=== PATIENT | female | born 1970 | race Caucasian/White ===

== ENCOUNTER 2017-09-27 23:28 | Emergency (ER) | payer OTHER ==
[~2017-09-27] VITALS: Ht 177.8 cm; Wt 101.9 kg
[~2017-09-27 23:28] MED LIST: ARIP5TAB4 PO; BUPR-94 PO; IRON-6; SERT100T PO; ZOLP12.543 PO
[2017-09-27 23:42] VITALS: BP 134/85
== END 2017-09-28 02:00 | disposition home or self-care (01) ==
LOC: ER 23:28
DX: R68.84 Jaw pain (principal); G43.909 Migraine, unspecified, not intractable, without status migrainosus; G89.29 Other chronic pain; Z90.49 Acquired absence of other specified parts of digestive tract; Z98.890 Other specified postprocedural states; Z98.84 Bariatric surgery status; Z91.013 Allergy to seafood; Z88.1 Allergy status to other antibiotic agents; Z79.899 Other long term (current) drug therapy; W19.XXXA Unspecified fall, initial encounter; Y93.89 Activity, other specified; Y92.89 Other specified places as the place of occurrence of the external cause; Y99.9 Unspecified external cause status
CPT/HCPCS: 70486; 99284

== ENCOUNTER 2017-11-21 07:38 | Outpatient (CLI) | payer OTHER ==
[2017-11-21 08:10] LABS: BASOPHILS % (AUTO) 0.7 % (0-1); EOSINOPHILS # (AUTO) 0.2 X10'3 (0-0.9); EOSINOPHILS % (AUTO) 4.3 % (0-6); HEMATOCRIT 42.4 % (35.0-45.0); HEMOGLOBIN 14.6 g/dl (12.0-16.0); LYMPHOCYTES # (AUTO) 1.1 X10'3 (1.1-4.8); MEAN CORPUSCULAR HGB CONC 34.4 % (33.0-36.5); MEAN CORPUSCULAR VOLUME 92.9 FL (78-98); MEAN PLATELET VOLUME 9.3 FL (7.4-10.4); MONOCYTES # (AUTO) 0.3 X10'3 (0-0.9); MONOCYTES % (AUTO) 7.5 % (2-12); NEUTROPHILS # (AUTO) 2.6 X10'3 (1.8-7.7); NEUTROPHILS % (AUTO) 61.5 % (42-75); PLATELET COUNT 204 X10'3 (140-440); RED BLOOD COUNT 4.56 X10'6 (4.20-5.60); RED CELL DISTRIBUTION WIDTH 14.4 % (11.5-14.5); WHITE BLOOD COUNT 4.2 X10'3 (4.5-11.0)
[2017-11-21 08:21] LABS: HEMOGLOBIN A1C 5.3 % (4.5-6.2)
[2017-11-21 08:49] LABS: ALANINE AMINOTRANSFERASE 31 U/L (12-78); ALBUMIN/GLOBULIN RATIO 1.3 (1.1-1.5); ALKALINE PHOSPHATASE 55 IU/L (46-116); ANION GAP 8 (8-16); ASPARTATE AMINO TRANSFERASE 21 U/L (10-37); BILIRUBIN,TOTAL 0.4 MG/DL (0.1-1.0); BLOOD UREA NITROGEN 17 MG/DL (7-18); BUN/CREATININE RATIO 18.3 (6.6-38.0); CALCIUM 8.8 MG/DL (8.5-10.1); CHLORIDE 103 MMOL/L (99-107); CHOLESTEROL 226 MG/DL (0-200); CREATININE 0.93 MG/DL (0.40-0.90); FERRITIN 34 NG/ML (8-252); GLUCOSE 92 MG/DL (70-104); POTASSIUM 4.1 MMOL/L (3.5-5.1); SODIUM 141 MMOL/L (135-145); TOTAL CARBON DIOXIDE 29.8 MMOL/L (24-32); TOTAL PROTEIN 7.1 G/DL (6.4-8.2); eGFR 64 ML/MIN
[2017-11-21 08:50] LABS: CHOL/HDL RATIO 2.2 (0.00-4.99); HDL CHOLESTEROL 103 MG/DL (35-60); LDL CHOLESTEROL 118 MG/DL (50-100); TRIGLYCERIDES 57 MG/DL (20-135)
== END 2017-11-21 23:59 | disposition home or self-care (01) ==
LOC: LAB 07:38
PROVIDERS: ATTEND Registered Nurse General Practice
DX: E78.5 Hyperlipidemia, unspecified (principal); R73.9 Hyperglycemia, unspecified; E55.9 Vitamin D deficiency, unspecified; D64.9 Anemia, unspecified
CPT/HCPCS: 36415; 80053; 80061; 82306; 82728; 83036; 84439; 84443; 85025

== ENCOUNTER 2018-01-03 15:12 | Outpatient (CLI) | payer OTHER ==
[2018-01-03 15:58] LABS: CLARITY,URINE CLEAR (Clear); COLOR,URINE YELLOW (Yellow); GLUCOSE, URINE NEGATIVE (Neg); KETONES,URINE NEGATIVE (Neg); LEUKOCYTE ESTERASE ,URINE NEGATIVE (Neg); NITRITES, URINE NEGATIVE (Neg); OCCULT BLOOD,URINE NEGATIVE (Neg); PH,URINE 5.5 (4.8-8.0); PROTEIN,URINE NEGATIVE (Neg); UROBILINOGEN,URINE 0.2 E.U/dL (0.2-1.0)
[2018-01-03 16:02] LABS: UA COLLECTION TYPE NON-SPECIFIED
== END 2018-01-03 23:59 | disposition home or self-care (01) ==
LOC: LAB 15:12
PROVIDERS: ATTEND Internal Medicine
DX: Z00.00 Encounter for general adult medical examination without abnormal findings (principal)
CPT/HCPCS: 81003

== ENCOUNTER 2018-03-19 14:18 | Outpatient (CLI) | payer OTHER | END 2018-03-19 23:59 | disposition home or self-care (01) | LOC: RAD 14:18 | PROVIDERS: ATTEND Registered Nurse General Practice | DX: M50.323 Other cervical disc degeneration at C6-C7 level (principal); M48.02 Spinal stenosis, cervical region; M25.78 Osteophyte, vertebrae; M43.12 Spondylolisthesis, cervical region | CPT/HCPCS: 72050; 72052 ==

== ENCOUNTER 2018-05-12 09:53 | Outpatient (CLI) | payer OTHER | END 2018-05-12 23:59 | disposition home or self-care (01) | LOC: RAD 09:53 | PROVIDERS: ATTEND Family Medicine | DX: M48.02 Spinal stenosis, cervical region (principal); M54.12 Radiculopathy, cervical region; Z87.891 Personal history of nicotine dependence | CPT/HCPCS: 72141 ==

== ENCOUNTER 2018-05-13 07:30 | Outpatient (CLI) | payer OTHER ==
[2018-05-13 07:49] LABS: BASOPHILS % (AUTO) 1.1 % (0-1); EOSINOPHILS # (AUTO) 0.2 X10'3 (0-0.9); EOSINOPHILS % (AUTO) 5.2 % (0-6); HEMATOCRIT 42.7 % (35.0-45.0); HEMOGLOBIN 14.4 g/dl (12.0-16.0); LYMPHOCYTES # (AUTO) 1.6 X10'3 (1.1-4.8); LYMPHOCYTES % (AUTO) 45.4 % (21-51); MEAN CORPUSCULAR HEMOGLOBIN 31.7 PG (27.0-31.0); MEAN CORPUSCULAR HGB CONC 33.6 % (33.0-36.5); MEAN CORPUSCULAR VOLUME 94.5 FL (78-98); MEAN PLATELET VOLUME 9.7 FL (7.4-10.4); MONOCYTES # (AUTO) 0.3 X10'3 (0-0.9); NEUTROPHILS # (AUTO) 1.3 X10'3 (1.8-7.7); NEUTROPHILS % (AUTO) 38.3 % (42-75); PLATELET COUNT 248 X10'3 (140-440); RED BLOOD COUNT 4.52 X10'6 (4.20-5.60); RED CELL DISTRIBUTION WIDTH 13.6 % (11.5-14.5); WHITE BLOOD COUNT 3.5 X10'3 (4.5-11.0)
[2018-05-13 08:02] LABS: CLARITY,URINE CLEAR (Clear); COLOR,URINE STRAW (Yellow); GLUCOSE, URINE NEGATIVE (Neg); KETONES,URINE NEGATIVE (Neg); LEUKOCYTE ESTERASE ,URINE NEGATIVE (Neg); NITRITES, URINE NEGATIVE (Neg); OCCULT BLOOD,URINE NEGATIVE (Neg); PROTEIN,URINE NEGATIVE (Neg); UROBILINOGEN,URINE 0.2 E.U/dL (0.2-1.0)
[2018-05-13 08:11] LABS: UA COLLECTION TYPE CLN CATCH MIDSTREAM
[2018-05-13 08:13] LABS: ALANINE AMINOTRANSFERASE 47 U/L (12-78); ALBUMIN 4.2 G/DL (3.4-5.0); ALBUMIN/GLOBULIN RATIO 1.4 (1.1-1.5); ALKALINE PHOSPHATASE 60 IU/L (46-116); ANION GAP 3 (8-16); ASPARTATE AMINO TRANSFERASE 25 U/L (10-37); BILIRUBIN,TOTAL 0.4 MG/DL (0.1-1.0); BLOOD UREA NITROGEN 14 MG/DL (7-18); CALCIUM 8.8 MG/DL (8.5-10.1); CHLORIDE 101 MMOL/L (99-107); CHOL/HDL RATIO 2.5 (0.00-4.99); CHOLESTEROL 224 MG/DL (0-200); CREATININE 1.08 MG/DL (0.40-0.90); GLUCOSE 81 MG/DL (70-104); HDL CHOLESTEROL 91 MG/DL (35-60); LDL CHOLESTEROL 121 MG/DL (50-100); POTASSIUM 3.9 MMOL/L (3.5-5.1); SODIUM 133 MMOL/L (135-145); TOTAL CARBON DIOXIDE 28.7 MMOL/L (24-32); TOTAL PROTEIN 7.2 G/DL (6.4-8.2); TRIGLYCERIDES 58 MG/DL (20-135); eGFR 54 ML/MIN
== END 2018-05-13 23:59 | disposition home or self-care (01) ==
LOC: LAB 07:30
PROVIDERS: ATTEND Family Medicine
DX: M54.2 Cervicalgia (principal); R53.83 Other fatigue; Z76.89 Persons encountering health services in other specified circumstances; Z87.891 Personal history of nicotine dependence; Z98.51 Tubal ligation status; Z98.84 Bariatric surgery status
CPT/HCPCS: 36415; 80053; 80061; 81003; 84439; 84443; 85025

== ENCOUNTER 2018-08-13 11:59 | Outpatient (CLI) | payer OTHER ==
[2018-08-13 13:15] LABS: ALANINE AMINOTRANSFERASE 43 U/L (12-78); ALBUMIN 3.9 G/DL (3.4-5.0); ALBUMIN/GLOBULIN RATIO 1.2 (1.1-1.5); ALKALINE PHOSPHATASE 49 IU/L (46-116); ANION GAP 9 (8-16); ASPARTATE AMINO TRANSFERASE 28 U/L (10-37); BILIRUBIN,TOTAL 0.5 MG/DL (0.1-1.0); BLOOD UREA NITROGEN 12 MG/DL (7-18); BUN/CREATININE RATIO 14.1 (6.6-38.0); CALCIUM 9.1 MG/DL (8.5-10.1); CHLORIDE 104 MMOL/L (99-107); CREATININE 0.85 MG/DL (0.40-0.90); GLUCOSE 98 MG/DL (70-104); POTASSIUM 4.1 MMOL/L (3.5-5.1); SODIUM 138 MMOL/L (135-145); TOTAL CARBON DIOXIDE 25.1 MMOL/L (24-32); TOTAL PROTEIN 7.1 G/DL (6.4-8.2); eGFR 71 ML/MIN
[2018-08-14 11:16] LABS: MICROALB/CRT, RATIO <24.6 mg/g creat (0.0-30.0)
== END 2018-08-13 23:59 | disposition home or self-care (01) ==
LOC: LAB 11:59
PROVIDERS: ATTEND Family Medicine
DX: N18.3 Chronic kidney disease, stage 3 (moderate) (principal); Z87.891 Personal history of nicotine dependence
CPT/HCPCS: 36415; 80053; 82043; 82570

== ENCOUNTER 2018-10-06 08:24 | Day surgery (SDC) | payer OTHER ==
[~2018-10-06] VITALS: Ht 177.8 cm; Wt 90.0 kg
[2018-10-06] MEDS ORDERED: MIDAZolam 5mg/5ml vial ONE ×2 (08:31→08:40)
[2018-10-06] MEDS ORDERED: fentaNYL/PF 50MCG/1 ML 2ML syringe ONE (08:31)
[2018-10-06] MEDS ORDERED: LIDOcaine Viscous 15ml cup ONE (08:31)
[2018-10-06 08:40] VITALS: BP 127/77
[2018-10-06] MEDS ORDERED: iron PO (08:46)
[2018-10-06] MEDS ORDERED: cymbalta PO (08:47)
[2018-10-06] MEDS ORDERED: NAPR220T67 PO (08:48)
[2018-10-06] MEDS ORDERED: GABA300C PO (08:48)
[2018-10-06] MEDS ORDERED: MELA3TAB PO (08:49)
[2018-10-06] MEDS ORDERED: CALC-1051 PO (08:49)
[2018-10-06] MEDS ORDERED: MAGN400C PO (08:50)
[2018-10-06] MEDS ORDERED: fish oil PO (08:51)
[2018-10-06] MEDS ORDERED: NIA500ERT PO (08:51)
[2018-10-06 10:15] VITALS: BP 110/73
[2018-10-06 10:25] VITALS: BP 111/72
[2018-10-06 10:35] VITALS: BP 103/66
[2018-10-06 10:45] VITALS: BP 114/67
== END 2018-10-06 10:55 | disposition home or self-care (01) ==
LOC: GI LAB 08:24
PROVIDERS: ATTEND Internal Medicine Gastroenterology
DX: K64.8 Other hemorrhoids (principal); Q43.8 Other specified congenital malformations of intestine; R19.4 Change in bowel habit; K21.9 Gastro-esophageal reflux disease without esophagitis; G89.29 Other chronic pain; F32.9 Major depressive disorder, single episode, unspecified; F41.8 Other specified anxiety disorders; Z98.84 Bariatric surgery status; Z72.89 Other problems related to lifestyle; Z98.51 Tubal ligation status; Z88.1 Allergy status to other antibiotic agents; Z88.3 Allergy status to other anti-infective agents; Z91.013 Allergy to seafood; Z87.891 Personal history of nicotine dependence; Z87.11 Personal history of peptic ulcer disease; Z90.49 Acquired absence of other specified parts of digestive tract; Z79.891 Long term (current) use of opiate analgesic; Z79.899 Other long term (current) drug therapy; Z98.890 Other specified postprocedural states; Z83.42 Family history of familial hypercholesterolemia; Z82.49 Family history of ischemic heart disease and other diseases of the circulatory system
CPT/HCPCS: 45378; 99152; 99153; J2250; J3010; J7030; A4620

== ENCOUNTER 2019-09-07 15:00 | Outpatient (CLI) | payer OTHER ==
[~2019-09-07 15:00] MED LIST changes: +ARIP5TAB14 PO; -ARIP5TAB4 PO; -BUPR-94 PO; +CALC-1051 PO; +GABA300C PO; -IRON-6; +MAGN400C PO; +MELA3TAB64 PO; +NAPR220T67 PO; +NIA500ERT PO; -SERT100T PO; +cymbalta PO; +fish oil PO; +iron PO
[2019-09-07 17:52] LABS: HIV ANTIBODY 1&2 RAPID NON-REACTIVE (Neg)
[2019-09-09 08:10] LABS: RPR Non Reactive (Non Reactive)
[2019-09-09 11:16] LABS: HEPATITIS C ANTIBODY <0.1 s/co ratio (0.0-0.9)
== END 2019-09-07 23:59 | disposition home or self-care (01) ==
LOC: LAB 15:00
PROVIDERS: ATTEND Specialist
DX: Z11.59 Encounter for screening for other viral diseases (principal)
CPT/HCPCS: 36415; 86592; 86703; 86803

== ENCOUNTER 2019-09-07 15:02 | Outpatient (CLI) | payer OTHER | END 2019-09-07 23:59 | disposition home or self-care (01) | LOC: LAB 15:02 | PROVIDERS: ATTEND Family Medicine | DX: K59.00 Constipation, unspecified (principal) | CPT/HCPCS: 74018 ==

== ENCOUNTER 2019-09-07 15:03 | Outpatient (CLI) | payer OTHER ==
[2019-09-07 16:03] LABS: BASOPHILS # (AUTO) 0.1 X10'3 (0-0.2); BASOPHILS % (AUTO) 1.2 % (0-1); EOSINOPHILS # (AUTO) 0.1 X10'3 (0-0.9); HEMATOCRIT 39.6 % (35.0-45.0); HEMOGLOBIN 13.3 g/dl (12.0-16.0); LYMPHOCYTES # (AUTO) 1.7 X10'3 (1.1-4.8); LYMPHOCYTES % (AUTO) 32.2 % (21-51); MEAN CORPUSCULAR HEMOGLOBIN 31.6 PG (27.0-31.0); MEAN CORPUSCULAR HGB CONC 33.7 g/dL (33.0-36.5); MEAN CORPUSCULAR VOLUME 93.9 FL (78-98); MEAN PLATELET VOLUME 9.6 FL (7.4-10.4); MONOCYTES # (AUTO) 0.4 X10'3 (0-0.9); MONOCYTES % (AUTO) 6.6 % (2-12); NEUTROPHILS # (AUTO) 3.1 X10'3 (1.8-7.7); PLATELET COUNT 254 X10'3 (140-440); RED BLOOD COUNT 4.21 X10'6 (4.20-5.60); RED CELL DISTRIBUTION WIDTH 14.3 % (11.5-14.5); WHITE BLOOD COUNT 5.4 X10'3 (4.5-11.0)
[2019-09-07 16:12] LABS: HEMOGLOBIN A1C 5.6 % (4.5-6.2)
[2019-09-07 16:27] LABS: ALANINE AMINOTRANSFERASE 37 U/L (12-78); ALBUMIN 3.8 G/DL (3.4-5.0); ALBUMIN/GLOBULIN RATIO 1.2 (1.1-1.5); ALKALINE PHOSPHATASE 58 IU/L (46-116); ANION GAP 9 (8-16); ASPARTATE AMINO TRANSFERASE 23 U/L (10-37); BILIRUBIN,TOTAL 0.2 MG/DL (0.1-1.0); BLOOD UREA NITROGEN 17 MG/DL (7-18); BUN/CREATININE RATIO 23.3 (6.6-38.0); CALCIUM 8.6 MG/DL (8.5-10.1); CHLORIDE 108 MMOL/L (99-107); CREATININE 0.73 MG/DL (0.40-0.90); GLUCOSE 92 MG/DL (70-104); LIPASE 140 U/L (73-393); POTASSIUM 4.3 MMOL/L (3.5-5.1); SODIUM 140 MMOL/L (135-145); TOTAL CARBON DIOXIDE 23.3 MMOL/L (24-32); TOTAL PROTEIN 7.1 G/DL (6.4-8.2); eGFR 84 ML/MIN
== END 2019-09-07 23:59 | disposition home or self-care (01) ==
LOC: LAB 15:03
PROVIDERS: ATTEND Family Medicine
DX: M54.2 Cervicalgia (principal); R53.83 Other fatigue
CPT/HCPCS: 36415; 80053; 83036; 83690; 84439; 84443; 85025

== ENCOUNTER 2019-11-01 08:21 | Emergency (ER) | payer OTHER ==
[~2019-11-01] VITALS: Ht 177.8 cm; Wt 90.3 kg
[2019-11-01 10:23] VITALS: BP 130/88
[2019-11-01] MEDS ORDERED: dexamethasone sod phosphate 10mg/ml inj PO STA (10:44)
== END 2019-11-01 11:01 | disposition home or self-care (01) ==
LOC: EEVIPCON 08:22 → ER 08:22
DX: B34.9 Viral infection, unspecified (principal); G43.909 Migraine, unspecified, not intractable, without status migrainosus; G89.29 Other chronic pain; Z98.890 Other specified postprocedural states; Z90.49 Acquired absence of other specified parts of digestive tract; Z98.84 Bariatric surgery status; Z91.013 Allergy to seafood; Z88.1 Allergy status to other antibiotic agents; Z79.899 Other long term (current) drug therapy
CPT/HCPCS: 87081; 87502; 87503; 87880; 99283; J1100

== ENCOUNTER 2019-11-10 14:56 | Outpatient (CLI) | payer OTHER ==
[2019-11-10 15:47] LABS: BASOPHILS # (AUTO) 0.1 X10'3 (0-0.2); BASOPHILS % (AUTO) 1.3 % (0-1); EOSINOPHILS % (AUTO) 0.3 % (0-6); HEMOGLOBIN 14.3 g/dl (12.0-16.0); LYMPHOCYTES # (AUTO) 1.6 X10'3 (1.1-4.8); LYMPHOCYTES % (AUTO) 34.9 % (21-51); MEAN CORPUSCULAR HEMOGLOBIN 31.2 PG (27.0-31.0); MEAN CORPUSCULAR VOLUME 91.6 FL (78-98); MEAN PLATELET VOLUME 8.6 FL (7.4-10.4); MONOCYTES # (AUTO) 0.4 X10'3 (0-0.9); MONOCYTES % (AUTO) 9.7 % (2-12); NEUTROPHILS # (AUTO) 2.4 X10'3 (1.8-7.7); NEUTROPHILS % (AUTO) 53.8 % (42-75); PLATELET COUNT 274 X10'3 (140-440); RED BLOOD COUNT 4.58 X10'6 (4.20-5.60); RED CELL DISTRIBUTION WIDTH 14.1 % (11.5-14.5); WHITE BLOOD COUNT 4.4 X10'3 (4.5-11.0)
[2019-11-10 16:06] LABS: ALANINE AMINOTRANSFERASE 37 U/L (12-78); ALBUMIN 3.6 G/DL (3.4-5.0); ALBUMIN/GLOBULIN RATIO 0.9 (1.1-1.5); ALKALINE PHOSPHATASE 93 IU/L (46-116); ANION GAP 6 (8-16); ASPARTATE AMINO TRANSFERASE 51 U/L (10-37); BILIRUBIN,TOTAL 0.3 MG/DL (0.1-1.0); BLOOD UREA NITROGEN 17 MG/DL (7-18); CALCIUM 9.2 MG/DL (8.5-10.1); CHLORIDE 105 MMOL/L (99-107); CREATININE 0.81 MG/DL (0.40-0.90); GLUCOSE 98 MG/DL (70-104); POTASSIUM 4.4 MMOL/L (3.5-5.1); SODIUM 138 MMOL/L (135-145); TOTAL CARBON DIOXIDE 26.8 MMOL/L (24-32); TOTAL PROTEIN 7.5 G/DL (6.4-8.2); eGFR 75 ML/MIN
== END 2019-11-10 23:59 | disposition home or self-care (01) ==
LOC: LAB 14:56
PROVIDERS: ATTEND Internal Medicine
DX: R50.9 Fever, unspecified (principal)
CPT/HCPCS: 36415; 80053; 85025

== ENCOUNTER 2019-11-13 09:01 | Emergency (ER) | payer OTHER ==
[~2019-11-13] VITALS: Ht 177.8 cm; Wt 95.5 kg
[2019-11-13 09:27] VITALS: BP 123/71
[2019-11-13 10:07] LABS: BASOPHILS % (AUTO) 0.9 % (0-1); EOSINOPHILS % (AUTO) 0.2 % (0-6); HEMATOCRIT 41.6 % (35.0-45.0); HEMOGLOBIN 14.1 g/dl (12.0-16.0); LYMPHOCYTES # (AUTO) 1.7 X10'3 (1.1-4.8); LYMPHOCYTES % (AUTO) 32.5 % (21-51); MEAN CORPUSCULAR HGB CONC 33.9 g/dL (33.0-36.5); MEAN CORPUSCULAR VOLUME 91.5 FL (78-98); MEAN PLATELET VOLUME 8.5 FL (7.4-10.4); MONOCYTES # (AUTO) 0.6 X10'3 (0-0.9); MONOCYTES % (AUTO) 10.7 % (2-12); NEUTROPHILS # (AUTO) 2.9 X10'3 (1.8-7.7); NEUTROPHILS % (AUTO) 55.7 % (42-75); PLATELET COUNT 258 X10'3 (140-440); RED BLOOD COUNT 4.55 X10'6 (4.20-5.60); RED CELL DISTRIBUTION WIDTH 14.3 % (11.5-14.5); WHITE BLOOD COUNT 5.2 X10'3 (4.5-11.0)
--- NOTE | 2019-11-13 10:15 | NUR ---
Received VO for 1 L NS IV bolus x 1
[2019-11-13 10:17] LABS: PARTIAL THROMBOPLASTIN TIME 25 SECONDS (22-32)
[2019-11-13 10:22] LABS: ALANINE AMINOTRANSFERASE 34 U/L (12-78); ALBUMIN 3.3 G/DL (3.4-5.0); ALBUMIN/GLOBULIN RATIO 0.8 (1.1-1.5); ALKALINE PHOSPHATASE 79 IU/L (46-116); ANION GAP 6 (8-16); ASPARTATE AMINO TRANSFERASE 51 U/L (10-37); BILIRUBIN,TOTAL 0.3 MG/DL (0.1-1.0); BLOOD UREA NITROGEN 14 MG/DL (7-18); BUN/CREATININE RATIO 19.7 (6.6-38.0); CALCIUM 8.6 MG/DL (8.5-10.1); CHLORIDE 106 MMOL/L (99-107); CREATININE 0.71 MG/DL (0.40-0.90); ETHANOL < 0.010 GM/DL (0.0-0.010); GLUCOSE 106 MG/DL (70-104); POTASSIUM 4.1 MMOL/L (3.5-5.1); SODIUM 137 MMOL/L (135-145); TOTAL CARBON DIOXIDE 24.7 MMOL/L (24-32); TOTAL PROTEIN 7.3 G/DL (6.4-8.2); eGFR 87 ML/MIN
[2019-11-13 10:23] LABS: MONOTEST NEGATIVE (Neg)
--- NOTE | 2019-11-13 10:32 | NUR ---
New IV initiated and fluid bolus running.
[2019-11-13] MEDS ORDERED: ketorolac trometh. 30mg/ml inj. IV ONE (10:45)
[2019-11-13 10:54] LABS: PLATELET ESTIMATE NORMAL; TOTAL CELLS COUNTED 100
== END 2019-11-13 11:50 | disposition home or self-care (01) ==
LOC: ER 09:01
DX: R53.1 Weakness (principal); R50.9 Fever, unspecified; J02.9 Acute pharyngitis, unspecified; R05 Cough; G43.909 Migraine, unspecified, not intractable, without status migrainosus; G89.29 Other chronic pain; F32.9 Major depressive disorder, single episode, unspecified; Z86.2 Personal history of diseases of the blood and blood-forming organs and certain disorders involving the immune mechanism; Z90.49 Acquired absence of other specified parts of digestive tract; Z98.0 Intestinal bypass and anastomosis status; Z72.89 Other problems related to lifestyle; Z91.013 Allergy to seafood; Z88.1 Allergy status to other antibiotic agents; Z88.6 Allergy status to analgesic agent; Z79.899 Other long term (current) drug therapy
CPT/HCPCS: 36415; 70450; 71045; 80053; 80320; 85025; 85610; 85730; 86308; 93005; 96374; 99285; J1885

== ENCOUNTER 2019-12-07 12:56 | Emergency (ER) | payer OTHER ==
[~2019-12-07] VITALS: Ht 177.8 cm; Wt 100.0 kg
[~2019-12-07 12:56] MED LIST changes: +MELA3TAB39 PO; -MELA3TAB64 PO
[2019-12-07] MEDS ORDERED: BUPIVAcaine/PF 2.5 mg/ml (0.25%) 30ml vial IJ ONE (13:35)
[2019-12-07] MEDS ORDERED: triamcinolone acetonide 40mg/ml inj IM ONE (13:35)
[2019-12-07] MEDS ORDERED: ketorolac trometh. 30mg/ml inj. IM ONE (13:35)
[2019-12-07] MEDS ORDERED: BUPIVAcaine/PF 2.5mg/ml (0.25%) 10ml vial IJ ONE (13:40)
[2019-12-07] MEDS ORDERED: CYCL-1 PO (14:12)
[2019-12-07 14:26] VITALS: BP 127/69
== END 2019-12-07 14:27 | disposition home or self-care (01) ==
LOC: ER 12:56
DX: M54.31 Sciatica, right side (principal); G43.909 Migraine, unspecified, not intractable, without status migrainosus; G89.29 Other chronic pain; F32.9 Major depressive disorder, single episode, unspecified; Z90.49 Acquired absence of other specified parts of digestive tract; Z98.0 Intestinal bypass and anastomosis status; Z72.89 Other problems related to lifestyle; Z86.2 Personal history of diseases of the blood and blood-forming organs and certain disorders involving the immune mechanism; Z91.013 Allergy to seafood; Z88.1 Allergy status to other antibiotic agents; Z88.8 Allergy status to other drugs, medicaments and biological substances; Z79.899 Other long term (current) drug therapy
CPT/HCPCS: 20552; 96372; 99284; J1885

== ENCOUNTER 2019-12-28 10:36 | Outpatient (CLI) | payer OTHER ==
[~2019-12-28 10:36] MED LIST changes: +CYCL-1 PO
== END 2019-12-28 23:59 | disposition home or self-care (01) ==
LOC: RAD 10:36
PROVIDERS: ATTEND Family Medicine
DX: M51.16 Intervertebral disc disorders with radiculopathy, lumbar region (principal); M47.816 Spondylosis without myelopathy or radiculopathy, lumbar region
CPT/HCPCS: 72148

== ENCOUNTER 2020-05-09 10:48 | Outpatient (CLI) | payer OTHER ==
[2020-05-09 12:23] LABS: BASOPHILS % (AUTO) 0.6 % (0-1); EOSINOPHILS # (AUTO) 0.1 X10'3 (0-0.9); EOSINOPHILS % (AUTO) 1.4 % (0-6); HEMATOCRIT 42.9 % (35.0-45.0); HEMOGLOBIN 14.7 g/dl (12.0-16.0); LYMPHOCYTES # (AUTO) 1.2 X10'3 (1.1-4.8); LYMPHOCYTES % (AUTO) 24.4 % (21-51); MEAN CORPUSCULAR HEMOGLOBIN 32.1 PG (27.0-31.0); MEAN CORPUSCULAR HGB CONC 34.3 g/dL (33.0-36.5); MEAN CORPUSCULAR VOLUME 93.6 FL (78-98); MEAN PLATELET VOLUME 9.3 FL (7.4-10.4); MONOCYTES # (AUTO) 0.4 X10'3 (0-0.9); MONOCYTES % (AUTO) 7.5 % (2-12); NEUTROPHILS # (AUTO) 3.2 X10'3 (1.8-7.7); NEUTROPHILS % (AUTO) 66.1 % (42-75); PLATELET COUNT 270 X10'3 (140-440); RED BLOOD COUNT 4.58 X10'6 (4.20-5.60); RED CELL DISTRIBUTION WIDTH 14.4 % (11.5-14.5); WHITE BLOOD COUNT 4.8 X10'3 (4.5-11.0)
[2020-05-09 12:36] LABS: CLARITY,URINE SLIGHTLY CLOUDY (Clear); GLUCOSE, URINE NEGATIVE (Neg); KETONES,URINE NEGATIVE (Neg); LEUKOCYTE ESTERASE ,URINE NEGATIVE (Neg); NITRITES, URINE NEGATIVE (Neg); OCCULT BLOOD,URINE NEGATIVE (Neg); PH,URINE 5.5 (4.8-8.0); PROTEIN,URINE NEGATIVE (Neg); UROBILINOGEN,URINE 0.2 E.U/dL (0.2-1.0)
[2020-05-09 12:44] LABS: UA COLLECTION TYPE CLN CATCH MIDSTREAM
[2020-05-09 12:45] LABS: COLOR,URINE YELLOW (Yellow)
[2020-05-09 12:53] LABS: MUCUS STRANDS MANY /LPF (Neg); SQUAMOUS EPITHELIAL CELL,UR MANY /LPF (FEW)
[2020-05-09 12:54] LABS: RBC,URINE 0-2 /HPF (0-2); WBC,URINE 0-4 /HPF (0-4)
[2020-05-09 12:55] LABS: BACTERIA,URINE FEW /HPF (Neg)
[2020-05-09 13:13] LABS: ALANINE AMINOTRANSFERASE 36 U/L (12-78); ALKALINE PHOSPHATASE 71 IU/L (46-116); ANION GAP 6 (8-16); ASPARTATE AMINO TRANSFERASE 27 U/L (10-37); BILIRUBIN,TOTAL 0.4 MG/DL (0.1-1.0); BLOOD UREA NITROGEN 20 MG/DL (7-18); BUN/CREATININE RATIO 22.7 (6.6-38.0); CHLORIDE 103 MMOL/L (99-107); CHOL/HDL RATIO 2.4 (0.00-4.99); CHOLESTEROL 232 MG/DL (0-200); CREATININE 0.88 MG/DL (0.40-0.90); GLUCOSE 87 MG/DL (70-104); HDL CHOLESTEROL 97 MG/DL (35-60); LDL CHOLESTEROL 119 MG/DL (50-100); POTASSIUM 3.7 MMOL/L (3.5-5.1); SODIUM 138 MMOL/L (135-145); TOTAL CARBON DIOXIDE 28.8 MMOL/L (24-32); TRIGLYCERIDES 51 MG/DL (20-135); eGFR 68 ML/MIN
[2020-05-10 12:22] LABS: ESTRADIOL 17.7 pg/mL (.); FSH, SERUM 44.9 mIU/mL (.); PROGESTERONE 0.1 ng/mL (.); THYROXINE (T4) 5.6 ug/dL (4.5-12.0)
== END 2020-05-09 23:59 | disposition home or self-care (01) ==
LOC: LAB 10:48
PROVIDERS: ATTEND Family Medicine
DX: Z00.00 Encounter for general adult medical examination without abnormal findings (principal); F43.9 Reaction to severe stress, unspecified; L65.9 Nonscarring hair loss, unspecified
CPT/HCPCS: 36415; 80053; 80061; 81001; 82670; 82679; 83001; 84144; 84402; 84403; 84436; 84443; 85025

== ENCOUNTER 2020-05-23 10:53 | Emergency (ER) | payer BC ==
[~2020-05-23] VITALS: Ht 177.8 cm; Wt 90.9 kg
[2020-05-23 11:03] VITALS: BP 122/88
== END 2020-05-23 12:19 | disposition home or self-care (01) ==
LOC: ER 10:53 → EEVIPCON 10:53 → ER 12:19
DX: B34.9 Viral infection, unspecified (principal); J02.9 Acute pharyngitis, unspecified; Z20.828 Contact with and (suspected) exposure to other viral communicable diseases; G43.909 Migraine, unspecified, not intractable, without status migrainosus; G89.29 Other chronic pain; F32.9 Major depressive disorder, single episode, unspecified; Z90.49 Acquired absence of other specified parts of digestive tract; Z72.89 Other problems related to lifestyle; Z88.1 Allergy status to other antibiotic agents; Z91.013 Allergy to seafood; Z88.6 Allergy status to analgesic agent; Z79.899 Other long term (current) drug therapy
CPT/HCPCS: 36415; 87081; 87880; 99283

== ENCOUNTER 2020-06-07 09:53 | Outpatient (CLI) | payer BC | END 2020-06-07 23:59 | disposition home or self-care (01) | LOC: RAD 09:53 | PROVIDERS: ATTEND Family Medicine | DX: N92.1 Excessive and frequent menstruation with irregular cycle (principal) | CPT/HCPCS: 76830; 76856 ==

== ENCOUNTER 2020-06-29 08:48 | Inpatient (IN) | payer BC ==
[~2020-06-29] VITALS: Ht 177.8 cm; Wt 99.1 kg
[2020-06-29] MEDS ORDERED: pantoprazole IV 80 MG in normal saline 100ml IV soln 100 ML IV ONE (09:25)
[2020-06-29] MEDS ORDERED: sodium ferric gluc complex inj 125 MG in normal saline 100ml IV soln 90 ML IV STA (09:28)
[2020-06-29] MEDS ORDERED: pantoprazole 40MG/NS 100ML BAG 100 ML IV ONE (09:30)
[2020-06-29 09:53] LABS: BASOPHILS % (AUTO) 1.1 % (0-1); EOSINOPHILS # (AUTO) 0.1 X10'3 (0-0.9); EOSINOPHILS % (AUTO) 1.9 % (0-6); LYMPHOCYTES # (AUTO) 0.9 X10'3 (1.1-4.8); LYMPHOCYTES % (AUTO) 20.9 % (21-51); MEAN CORPUSCULAR HEMOGLOBIN 32.5 PG (27.0-31.0); MEAN CORPUSCULAR HGB CONC 33.2 g/dL (33.0-36.5); MEAN PLATELET VOLUME 8.5 FL (7.4-10.4); MONOCYTES # (AUTO) 0.4 X10'3 (0-0.9); MONOCYTES % (AUTO) 8.4 % (2-12); NEUTROPHILS # (AUTO) 2.9 X10'3 (1.8-7.7); NEUTROPHILS % (AUTO) 67.7 % (42-75); PLATELET COUNT 274 X10'3 (140-440); RED BLOOD COUNT 2.06 X10'6 (4.20-5.60); RED CELL DISTRIBUTION WIDTH 14.6 % (11.5-14.5); WHITE BLOOD COUNT 4.2 X10'3 (4.5-11.0)
[2020-06-29 10:05] LABS: HEMATOCRIT 20.2 % (35.0-45.0); HEMOGLOBIN 6.7 g/dl (12.0-16.0)
[2020-06-29 10:11] LABS: ALANINE AMINOTRANSFERASE 35 U/L (12-78); ALBUMIN/GLOBULIN RATIO 0.9 (1.1-1.5); ALKALINE PHOSPHATASE 57 IU/L (46-116); ANION GAP 6 (8-16); ASPARTATE AMINO TRANSFERASE 30 U/L (10-37); BILIRUBIN,TOTAL 0.2 MG/DL (0.1-1.0); BLOOD UREA NITROGEN 20 MG/DL (7-18); BUN/CREATININE RATIO 28.2 (6.6-38.0); CALCIUM 8.1 MG/DL (8.5-10.1); CHLORIDE 106 MMOL/L (99-107); CREATININE 0.71 MG/DL (0.40-0.90); GLUCOSE 101 MG/DL (70-104); POTASSIUM 3.7 MMOL/L (3.5-5.1); SODIUM 138 MMOL/L (135-145); TOTAL CARBON DIOXIDE 25.7 MMOL/L (24-32); TOTAL PROTEIN 6.2 G/DL (6.4-8.2); eGFR 87 ML/MIN
[2020-06-29] MEDS ORDERED: VITC500T PO (10:34)
[2020-06-29] MEDS ORDERED: BIOT10TA4 PO (10:34)
[2020-06-29] MEDS ORDERED: DULO-31 PO (10:34)
--- NOTE | 2020-06-29 11:41 | NUR ---
Dr. Cruz at bedside.
[2020-06-29] MEDS ORDERED: potassium Cl 20 mEq SR tablet PO PRN ×2 (12:05)
[2020-06-29] MEDS ORDERED: bisacodyl 10mg suppository rectal RC PRN (12:05)
[2020-06-29] MEDS ORDERED: magnesium Cl slow-release 64mg tablet PO PRN (12:05)
[2020-06-29] MEDS ORDERED: mag hydrox/Alum hydrox/simeth 30ml oral suspension PO PRN (12:05)
[2020-06-29] MEDS ORDERED: acetaminophen 325mg tablet PO PRN ×2 (12:05)
[2020-06-29] MEDS ORDERED: potassium CL 10mEq/100ml bag 100 ML IV PRN ×2 (12:05)
[2020-06-29] MEDS ORDERED: magnesium hydroxide 30ml (MOM) UD suspension PO PRN (12:05)
[2020-06-29] MEDS ORDERED: magnesium 2GM in 50ml NS 50 ML IV PRN (12:05)
[2020-06-29] MEDS ORDERED: magnesium 4gm in 100ml NS 100 ML IV PRN (12:05)
[2020-06-29] MEDS ORDERED: metoclopramide 5 mg/ml inj IV PRN (12:05)
[2020-06-29] MEDS ORDERED: ondansetron/PF 4mg/2ml inj IV PRN (12:05)
[2020-06-29 12:59] LABS: OCCULT BLOOD STOOL POSITIVE (Neg)
[2020-06-29 14:15] VITALS: BP 113/74
[2020-06-29] MEDS: normal saline 1000ml 1,000 ML IV SCH ×3 (14:20→23:55)
[2020-06-29] MEDS ORDERED: aripiprazole 5mg tablet PO SCH (14:41)
[2020-06-29] MEDS: pantoprazole 40MG/NS 100ML BAG 100 ML IV SCH ×2 (16:14→21:11)
--- NOTE | 2020-06-29 18:23 | NUR ---
Problems reprioritized. Patient report given, questions answered & plan of care reviewed with OWEN OLMOS.
--- NOTE | 2020-06-29 18:32 | NUR ---
I have received report from Dayanna WEAVER and had the opportunity to ask questions and assume patient care.
[2020-06-29 20:00] VITALS: BP 103/46
[2020-06-29] MEDS: K and/or MAG REPLACEMENT MC SCH (20:00)
[2020-06-29] MEDS ORDERED: temazepam 15mg capsule PO PRN (21:00)
[2020-06-29] MEDS: aripiprazole 5mg tablet PO SCH (21:11)
[2020-06-29] MEDS: duloxetine 30mg CAPSULE.DR PO SCH (21:11)
[2020-06-29] MEDS: zolpidem 5mg tablet PO PRN (21:13)
[2020-06-29] MEDS: HYDROcodone/acetaminophen 5mg/325mg tablet PO PRN (22:50)
[2020-06-30] VITALS (12 sets, daily range): BP systolic 96–121; BP diastolic 50–73
[2020-06-30] MEDS: pantoprazole 40MG/NS 100ML BAG 100 ML IV SCH ×4 (01:00→16:02)
[2020-06-30] MEDS: HYDROcodone/acetaminophen 5mg/325mg tablet PO PRN (02:53)
[2020-06-30 05:44] LABS: MEAN CORPUSCULAR HGB CONC 33.9 g/dL (33.0-36.5); MEAN CORPUSCULAR VOLUME 100.3 FL (78-98); MEAN PLATELET VOLUME 8.7 FL (7.4-10.4); PLATELET COUNT 223 X10'3 (140-440); RED BLOOD COUNT 1.75 X10'6 (4.20-5.60); WHITE BLOOD COUNT 2.4 X10'3 (4.5-11.0)
[2020-06-30 05:53] LABS: ALBUMIN 2.4 G/DL (3.4-5.0); ANION GAP 5 (8-16); BLOOD UREA NITROGEN 10 MG/DL (7-18); BUN/CREATININE RATIO 14.7 (6.6-38.0); CALCIUM 7.7 MG/DL (8.5-10.1); CHLORIDE 110 MMOL/L (99-107); CREATININE 0.68 MG/DL (0.40-0.90); GLUCOSE 88 MG/DL (70-104); MAGNESIUM 2.2 MG/DL (1.5-2.4); POTASSIUM 3.8 MMOL/L (3.5-5.1); SODIUM 140 MMOL/L (135-145); TOTAL CARBON DIOXIDE 25.2 MMOL/L (24-32); eGFR > 90 ML/MIN
[2020-06-30 06:26] LABS: HEMOGLOBIN 5.9 g/dl (12.0-16.0)
[2020-06-30 06:27] LABS: HEMATOCRIT 17.5 % (35.0-45.0)
--- NOTE | 2020-06-30 06:35 | NUR ---
PAGER ID: [phone] MESSAGE: [phone] Michelle Rodríguez: critical H&H 5.9.5 -esther [phone]
--- NOTE | 2020-06-30 06:39 | NUR ---
Problems reprioritized. Patient report given, questions answered & plan of care reviewed with Sally WEAVER.
--- NOTE | 2020-06-30 06:40 | NUR ---
austyn de la cruz hospitalist regarding critical H&H 5.06/16.. he ordered 2 units of blood to transfuse if she will accept. spoke with patient regarding her labs and the new orders and she declined any blood product. called GI lab to see when upper endoscopy will be performed today, they said "early afternoon".
[2020-06-30] MEDS: K and/or MAG REPLACEMENT MC SCH ×2 (07:48→19:13)
[2020-06-30] MEDS ORDERED: duloxetine 30mg CAPSULE.DR PO SCH (08:00)
[2020-06-30] MEDS: normal saline 1000ml 1,000 ML IV SCH ×2 (09:16→20:27)
[2020-06-30] MEDS: HYDROcodone/acetaminophen 10/325mg tab PO PRN ×2 (11:05→16:02)
[2020-06-30] MEDS ORDERED: MIDAZolam 5mg/5ml vial ONE ×2 (12:25)
[2020-06-30] MEDS ORDERED: LIDOcaine Viscous 15ml cup ONE (12:25)
[2020-06-30] MEDS ORDERED: fentaNYL/PF 50MCG/1 ML 2ML syringe ONE (12:25)
--- NOTE | 2020-06-30 15:08 | NUR ---
PAGER ID: [phone] MESSAGE: [phone] Manny Rodríguez: patient back from GI lab. vital signs stable. requesting to go home. esther [phone]
--- NOTE | 2020-06-30 18:23 | NUR ---
Problems reprioritized. Patient report given, questions answered & plan of care reviewed with OWEN Hooks.
--- NOTE | 2020-06-30 18:27 | NUR ---
Patient in room [facility]. I have received report from OWEN Zavala and had the opportunity to ask questions and assume patient care.
[2020-06-30] MEDS: aripiprazole 5mg tablet PO SCH (20:26)
[2020-06-30] MEDS: pantoprazole 40mg Tablet.DR PO SCH (20:26)
[2020-06-30] MEDS: duloxetine 30mg CAPSULE.DR PO SCH (20:26)
[2020-06-30] MEDS: zolpidem 5mg tablet PO PRN (22:56)
[2020-07-01] VITALS: BP 117/67
[2020-07-01] MEDS: normal saline 1000ml 1,000 ML IV SCH (04:01)
[2020-07-01] MEDS: HYDROcodone/acetaminophen 10/325mg tab PO PRN (04:01)
[2020-07-01 06:04] LABS: MEAN CORPUSCULAR HEMOGLOBIN 33.2 PG (27.0-31.0); MEAN CORPUSCULAR HGB CONC 33.2 g/dL (33.0-36.5); MEAN PLATELET VOLUME 8.5 FL (7.4-10.4); PLATELET COUNT 243 X10'3 (140-440); RED BLOOD COUNT 1.76 X10'6 (4.20-5.60); RED CELL DISTRIBUTION WIDTH 15.9 % (11.5-14.5); WHITE BLOOD COUNT 2.4 X10'3 (4.5-11.0)
[2020-07-01 06:07] LABS: ALBUMIN 2.4 G/DL (3.4-5.0); ANION GAP 6 (8-16); BLOOD UREA NITROGEN 7 MG/DL (7-18); BUN/CREATININE RATIO 10.4 (6.6-38.0); CALCIUM 7.8 MG/DL (8.5-10.1); CHLORIDE 110 MMOL/L (99-107); CREATININE 0.67 MG/DL (0.40-0.90); GLUCOSE 94 MG/DL (70-104); MAGNESIUM 2.1 MG/DL (1.5-2.4); POTASSIUM 3.8 MMOL/L (3.5-5.1); SODIUM 141 MMOL/L (135-145); TOTAL CARBON DIOXIDE 25.4 MMOL/L (24-32); eGFR > 90 ML/MIN
[2020-07-01 06:14] LABS: HEMATOCRIT 17.6 % (35.0-45.0); HEMOGLOBIN 5.8 g/dl (12.0-16.0)
--- NOTE | 2020-07-01 06:39 | NUR ---
Problems reprioritized. Patient report given, questions answered & plan of care reviewed with OWEN Hook.
--- NOTE | 2020-07-01 06:49 | NUR ---
Patient in room [facility]. I have received report from Neva WEAVER and had the opportunity to ask questions and assume patient care.
[2020-07-01 07:00] VITALS: BP 118/73
[2020-07-01] MEDS: pantoprazole 40mg Tablet.DR PO SCH ×2 (07:51→20:38)
[2020-07-01] MEDS: K and/or MAG REPLACEMENT MC SCH ×2 (08:00→20:00)
--- NOTE | 2020-07-01 08:54 | NUR ---
Dr. Flores called back, I was on the phone talking to another doctor. Dr. Flores told azael no new order as patient cannot have blood transfusion Addendum: 07/01/20 at 1141 by Miladys Gee RN Brown WEAVER
[2020-07-01 11:00] VITALS: BP 126/75
--- NOTE | 2020-07-01 11:03 | NUR ---
PAGER ID: [phone] MESSAGE: Yu-Surg [phone] Re: Marcos Lay can we order her a regular diet? Addendum: 07/01/20 at 1104 by Yu Cain RN Received call back from Dr Mark brooks to order Regular diet for patient. He is awaiting for iron tests to come back before ordering iron. Also , received orders to S/L patient Dr Flores aware patient has edema
--- NOTE | 2020-07-01 11:40 | NUR ---
Blood just drawn for TIBC, iron. Patient requesting repeat hemogram - Dr. Flores notified via paging system
[2020-07-01 12:38] LABS: MEAN CORPUSCULAR HEMOGLOBIN 33.2 PG (27.0-31.0); MEAN CORPUSCULAR HGB CONC 33.1 g/dL (33.0-36.5); MEAN CORPUSCULAR VOLUME 100.3 FL (78-98); MEAN PLATELET VOLUME 8.5 FL (7.4-10.4); PLATELET COUNT 291 X10'3 (140-440); RED BLOOD COUNT 2.05 X10'6 (4.20-5.60); WHITE BLOOD COUNT 2.3 X10'3 (4.5-11.0)
[2020-07-01 12:40] LABS: HEMOGLOBIN 6.8 g/dl (12.0-16.0)
[2020-07-01 12:41] LABS: HEMATOCRIT 20.5 % (35.0-45.0)
--- NOTE | 2020-07-01 12:43 | NUR ---
Critical lab results H/H 6.820.[address] Flores. No new order made. I asked him about Lasix for the leg swelling, he said he does not want to drop patient's BP and that patient is not short of breath and also that we discontinued the IVF Addendum: 07/01/20 at 1301 by Miladys Gee RN Dr. Flores mentioned to me that patient asked him about Procrit due to low hgb, Dr. Flores stated that he does not want to order Procrit at this time as patient's kidney function is okay.
[2020-07-01 12:48] LABS: % IRON SATURATION 5 % (11-46); IRON 17 UG/DL (49-151); TOTAL IRON BINDING CAPACITY 333 UG/DL (259-388)
[2020-07-01] MEDS ORDERED: iron sucrose complex injection 200 MG in normal saline 100ml IV soln 100 ML IV SCH (13:55)
[2020-07-01] MEDS: iron sucrose complex injection 200 MG in normal saline 100ml IV soln 90 ML IV SCH (14:34)
[2020-07-01 18:00] VITALS: BP 128/68
--- NOTE | 2020-07-01 18:49 | NUR ---
Problems reprioritized. Patient report given, questions answered & plan of care reviewed with Vera WEAVER.
[2020-07-01] MEDS: aripiprazole 5mg tablet PO SCH (20:38)
[2020-07-01] MEDS: duloxetine 30mg CAPSULE.DR PO SCH (20:38)
[2020-07-01] MEDS: zolpidem 5mg tablet PO PRN (22:48)
[2020-07-01] MEDS: HYDROcodone/acetaminophen 5mg/325mg tablet PO PRN (22:48)
[2020-07-02] VITALS (11 sets, daily range): BP systolic 101–127; BP diastolic 58–86
[2020-07-02 05:20] LABS: MEAN CORPUSCULAR HEMOGLOBIN 33.8 PG (27.0-31.0); MEAN CORPUSCULAR VOLUME 99.5 FL (78-98); MEAN PLATELET VOLUME 8.2 FL (7.4-10.4); PLATELET COUNT 261 X10'3 (140-440); RED BLOOD COUNT 1.78 X10'6 (4.20-5.60); WHITE BLOOD COUNT 2.4 X10'3 (4.5-11.0)
[2020-07-02 05:21] LABS: CHOL/HDL RATIO 2.4 (0.00-4.99); CHOLESTEROL 143 MG/DL (0-200); HDL CHOLESTEROL 59 MG/DL (35-60); LDL CHOLESTEROL 80 MG/DL (50-100); TRIGLYCERIDES 28 MG/DL (20-135)
[2020-07-02 05:23] LABS: ALBUMIN 2.4 G/DL (3.4-5.0); ANION GAP 5 (8-16); BLOOD UREA NITROGEN 9 MG/DL (7-18); BUN/CREATININE RATIO 12.5 (6.6-38.0); CHLORIDE 110 MMOL/L (99-107); CREATININE 0.72 MG/DL (0.40-0.90); GLUCOSE 93 MG/DL (70-104); HEMATOCRIT 17.7 % (35.0-45.0); MAGNESIUM 2.1 MG/DL (1.5-2.4); POTASSIUM 3.4 MMOL/L (3.5-5.1); SODIUM 142 MMOL/L (135-145); TOTAL CARBON DIOXIDE 27.4 MMOL/L (24-32); eGFR 85 ML/MIN
--- NOTE | 2020-07-02 07:01 | NUR ---
Patient in room [facility]. I have received report from RANDI WEAVER and had the opportunity to ask questions and assume patient care.
[2020-07-02] MEDS: K and/or MAG REPLACEMENT MC SCH ×3 (08:00→19:46)
[2020-07-02] MEDS: iron sucrose complex injection 200 MG in normal saline 100ml IV soln 90 ML IV SCH (08:12)
[2020-07-02] MEDS: pantoprazole 40mg Tablet.DR PO SCH ×2 (08:12→21:36)
[2020-07-02] MEDS: HYDROcodone/acetaminophen 5mg/325mg tablet PO PRN ×2 (09:36→16:23)
--- NOTE | 2020-07-02 12:23 | NUR ---
patient fatigued today, seen by DR Flores, agreed to receive blood. Two units ordered.
[2020-07-02] MEDS ORDERED: potassium CL 10mEq/100ml bag 100 ML IV PRN (12:40)
[2020-07-02] MEDS ORDERED: magnesium 4gm in 100ml NS 100 ML IV PRN (12:40)
[2020-07-02] MEDS ORDERED: potassium Cl 20 mEq SR tablet PO PRN (12:40)
[2020-07-02] MEDS ORDERED: magnesium Cl slow-release 64mg tablet PO PRN (12:40)
[2020-07-02] MEDS ORDERED: magnesium 2GM in 50ml NS 50 ML IV PRN (12:40)
[2020-07-02] MEDS: potassium Cl 20 mEq SR tablet PO PRN ×2 (12:56→18:00)
--- NOTE | 2020-07-02 17:39 | NUR ---
first unit given, tolerated well. No complaints. Second unit initiated 1729. Patient medicated with norco 5mg x2 for headache, with effect . will continue to monitor.
--- NOTE | 2020-07-02 18:22 | NUR ---
Problems reprioritized. Patient report given, questions answered & plan of care reviewed with Maya WEAVER.
--- NOTE | 2020-07-02 18:30 | NUR ---
Patient in room [facility]. I have received report from OWEN Duncan and had the opportunity to ask questions and assume patient care.
[2020-07-02] MEDS: zolpidem 5mg tablet PO PRN (21:36)
[2020-07-02] MEDS: duloxetine 30mg CAPSULE.DR PO SCH (21:36)
[2020-07-02] MEDS: aripiprazole 5mg tablet PO SCH (21:36)
[2020-07-03 00:39] VITALS: BP 128/69
[2020-07-03 05:17] LABS: HEMATOCRIT 23.6 % (35.0-45.0); HEMOGLOBIN 7.9 g/dl (12.0-16.0); MEAN CORPUSCULAR HEMOGLOBIN 32.3 PG (27.0-31.0); MEAN CORPUSCULAR HGB CONC 33.5 g/dL (33.0-36.5); MEAN CORPUSCULAR VOLUME 96.4 FL (78-98); MEAN PLATELET VOLUME 8.2 FL (7.4-10.4); PLATELET COUNT 276 X10'3 (140-440); RED BLOOD COUNT 2.45 X10'6 (4.20-5.60); RED CELL DISTRIBUTION WIDTH 16.6 % (11.5-14.5); WHITE BLOOD COUNT 2.5 X10'3 (4.5-11.0)
[2020-07-03 05:23] LABS: ALBUMIN 2.4 G/DL (3.4-5.0); ANION GAP 5 (8-16); BLOOD UREA NITROGEN 9 MG/DL (7-18); BUN/CREATININE RATIO 11.7 (6.6-38.0); CHLORIDE 110 MMOL/L (99-107); CREATININE 0.77 MG/DL (0.40-0.90); GLUCOSE 89 MG/DL (70-104); MAGNESIUM 2.1 MG/DL (1.5-2.4); POTASSIUM 3.6 MMOL/L (3.5-5.1); SODIUM 140 MMOL/L (135-145); TOTAL CARBON DIOXIDE 25.3 MMOL/L (24-32); eGFR 79 ML/MIN
--- NOTE | 2020-07-03 06:47 | NUR ---
Patient in room [facility]. I have received report from OWEN COLLAZO and had the opportunity to ask questions and assume patient care.
--- NOTE | 2020-07-03 06:47 | NUR ---
Problems reprioritized. Patient report given, questions answered & plan of care reviewed with Savana Phan RN.
[2020-07-03] MEDS: pantoprazole 40mg Tablet.DR PO SCH (07:50)
[2020-07-03] MEDS: iron sucrose complex injection 200 MG in normal saline 100ml IV soln 90 ML IV SCH (07:50)
[2020-07-03 07:51] VITALS: BP 135/85
[2020-07-03] MEDS: K and/or MAG REPLACEMENT MC SCH ×2 (08:00)
[2020-07-03] MEDS ORDERED: HYDR-4383 PO (10:00)
[2020-07-03] MEDS ORDERED: PANT-47 PO (10:09)
--- NOTE | 2020-07-03 10:21 | NUR ---
PATIENT STABLE AND APPROPRIATE FOR DISCHARGE, IV TAKEN OUT, NEW MEDS E-SCRIPTED TO PREFERRED PHARMACY AND SCRIPT FOR PAIN MEDS GIVEN TO PATIENT, EDUCATION GIVEN, PATIENT WALKED TO PERSONAL VEHICLE WHERE PATIENT WILL DRIVE HOME
== END 2020-07-03 10:22 | disposition home or self-care (01) | DRG 379 ==
LOC: ER 08:48 → EEVIPCON 08:48 → ED HOLD 12:04 → SUR 3N 14:07
PROVIDERS: ADMIT Family Medicine; ATTEND Family Medicine
PROC: 0DB68ZX Excision of Stomach, Via Natural or Artificial Opening Endoscopic, Diagnostic (ICD-10-PCS; 2020-06-30)
PROC: 30233N1 Transfusion of Nonautologous Red Blood Cells into Peripheral Vein, Percutaneous Approach (ICD-10-PCS; principal; 2020-07-02)
DX: K28.4 Chronic or unspecified gastrojejunal ulcer with hemorrhage (principal); D50.0 Iron deficiency anemia secondary to blood loss (chronic); E78.5 Hyperlipidemia, unspecified; F41.1 Generalized anxiety disorder; G89.29 Other chronic pain; M54.40 Lumbago with sciatica, unspecified side; K59.00 Constipation, unspecified; T50.905A Adverse effect of unspecified drugs, medicaments and biological substances, initial encounter; N18.9 Chronic kidney disease, unspecified; K44.9 Diaphragmatic hernia without obstruction or gangrene; Z53.1 Procedure and treatment not carried out because of patient's decision for reasons of belief and group pressure; F32.9 Major depressive disorder, single episode, unspecified; G43.909 Migraine, unspecified, not intractable, without status migrainosus; K59.09 Other constipation; Z98.84 Bariatric surgery status; Z91.041 Radiographic dye allergy status; Z91.013 Allergy to seafood; Z90.49 Acquired absence of other specified parts of digestive tract; Y92.89 Other specified places as the place of occurrence of the external cause; Z79.899 Other long term (current) drug therapy
CPT/HCPCS: 36415; 36430; 43239; 71045; 80048; 80053; 80061; 82272; 83540; 83550; 83735; 85025; 85027; 85610; 86885; 86900; 86901; 86920; 87081; 93005; 96365; 99152; 99285; A4620; C9113; G0378; J1756; J2250; J2916; J3010; J7030; J7040; P9016

== ENCOUNTER 2020-08-01 15:40 | Outpatient (CLI) | payer BC ==
[~2020-08-01 15:40] MED LIST changes: +BIOT10TA4 PO; -CYCL-1 PO; +DULO-31 PO; -GABA300C PO; +HYDR-4383 PO; -MELA3TAB39 PO; -NAPR220T67 PO; +PANT-47 PO; +VITC500T PO; -cymbalta PO
[2020-08-01 16:30] LABS: BASOPHILS % (AUTO) 1.4 % (0-1); EOSINOPHILS # (AUTO) 0.2 X10'3 (0-0.9); EOSINOPHILS % (AUTO) 5.4 % (0-6); HEMATOCRIT 41.7 % (35.0-45.0); HEMOGLOBIN 13.8 g/dl (12.0-16.0); LYMPHOCYTES # (AUTO) 1.2 X10'3 (1.1-4.8); LYMPHOCYTES % (AUTO) 34.4 % (21-51); MEAN CORPUSCULAR HEMOGLOBIN 31.7 PG (27.0-31.0); MEAN CORPUSCULAR VOLUME 96.2 FL (78-98); MEAN PLATELET VOLUME 8.5 FL (7.4-10.4); MONOCYTES # (AUTO) 0.3 X10'3 (0-0.9); MONOCYTES % (AUTO) 9.5 % (2-12); NEUTROPHILS # (AUTO) 1.7 X10'3 (1.8-7.7); NEUTROPHILS % (AUTO) 49.3 % (42-75); PLATELET COUNT 294 X10'3 (140-440); RED BLOOD COUNT 4.34 X10'6 (4.20-5.60); RED CELL DISTRIBUTION WIDTH 14.9 % (11.5-14.5); WHITE BLOOD COUNT 3.4 X10'3 (4.5-11.0)
== END 2020-08-01 23:59 | disposition home or self-care (01) ==
LOC: LAB 15:40
PROVIDERS: ATTEND Specialist
DX: Z11.59 Encounter for screening for other viral diseases (principal); K92.2 Gastrointestinal hemorrhage, unspecified
CPT/HCPCS: 36415; 85025; 86592; 87389; 87491

== ENCOUNTER 2020-08-23 14:51 | Day surgery (SDC) | payer BC ==
[2020-08-16 16:35] LABS: BASOPHILS # (AUTO) 0.1 X10'3 (0-0.2); BASOPHILS % (AUTO) 1.4 % (0-1); EOSINOPHILS # (AUTO) 0.2 X10'3 (0-0.9); EOSINOPHILS % (AUTO) 4.2 % (0-6); LYMPHOCYTES # (AUTO) 1.3 X10'3 (1.1-4.8); LYMPHOCYTES % (AUTO) 34.7 % (21-51); MEAN CORPUSCULAR HEMOGLOBIN 32.2 PG (27.0-31.0); MEAN CORPUSCULAR HGB CONC 33.4 g/dL (33.0-36.5); MEAN CORPUSCULAR VOLUME 96.3 FL (78-98); MEAN PLATELET VOLUME 8.1 FL (7.4-10.4); MONOCYTES # (AUTO) 0.3 X10'3 (0-0.9); MONOCYTES % (AUTO) 8.4 % (2-12); NEUTROPHILS # (AUTO) 1.9 X10'3 (1.8-7.7); NEUTROPHILS % (AUTO) 51.3 % (42-75); PRE OP HEMATOCRIT 42.9 % (35.0-45.0); PRE OP HEMOGLOBIN 14.4 g/dL (12.0-16.0); PRE OP PLATELET COUNT 268 X10'3 (140-440); RED BLOOD COUNT 4.46 X10'6 (4.20-5.60); RED CELL DISTRIBUTION WIDTH 13.9 % (11.5-14.5)
[2020-08-16 16:49] LABS: ALBUMIN 3.4 G/DL (3.4-5.0); ALBUMIN/GLOBULIN RATIO 0.8 (1.1-1.5); ALKALINE PHOSPHATASE 80 IU/L (46-116); BLOOD UREA NITROGEN 14 MG/DL (7-18); BUN/CREATININE RATIO 17.3 (6.6-38.0); CALCIUM 8.6 MG/DL (8.5-10.1); CHLORIDE 106 MMOL/L (99-107); CREATININE 0.81 MG/DL (0.40-0.90); PRE OP ALT 30 U/L (30-65); PRE OP ANION GAP 8 (8-16); PRE OP AST 27 U/L (10-37); PRE OP BILIRUB, TOTAL 0.2 MG/DL (0.0-1.0); PRE OP GLUCOSE 98 MG/DL (70-104); PRE OP POTASSIUM 3.8 MMOL/L (3.4-5.1); PRE OP SODIUM 140 MMOL/L (135-145); TOTAL PROTEIN 7.5 G/DL (6.4-8.2); eGFR 74 ML/MIN
[~2020-08-23] VITALS: Ht 177.8 cm; Wt 95.3 kg
[2020-08-23] VITALS (8 sets, daily range): BP systolic 105–127; BP diastolic 71–77
[~2020-08-23 14:51] MED LIST changes: +CHRO400T10 PO; +CYCL-1 PO; +FERR-119 PO; +FLUT16SP2 BOTHNARES; -HYDR-4383 PO; +LORA10CA PO; -PANT-47 PO; +PANT40TA54 PO; +PHEN105C47 PO; +TRAM50TA2 PO; +VITA-268 PO; +ceFOXitin sod/dextrose 2g/50ml 50 ML IV ONE; +famotidine 20mg tablet PO ONE; +ringers solution, lacted 1,000 ML IV SCH
[2020-08-23] MEDS ORDERED: meperidine/PF 25mg/ml syringe IV PRN ×3 (15:15)
[2020-08-23] MEDS ORDERED: morphine 4 MG/ML inj SYRINge IV PRN (15:15)
[2020-08-23] MEDS ORDERED: proCHLORperazine 10 MG/2 ml inj IV PRN (15:15)
[2020-08-23] MEDS ORDERED: ondansetron/PF 4mg/2ml inj IV PRN (15:15)
[2020-08-23] MEDS ORDERED: ringers solution, lacted 1,000 ML IV SCH (15:15)
[2020-08-23] MEDS ORDERED: morphine 2 MG/ML inj. syringe IV PRN (15:15)
[2020-08-23] MEDS ORDERED: fentaNYL/PF 50MCG/1 ML 2ML syringe ONE (15:54)
[2020-08-23] MEDS ORDERED: LIDOcaine 2% (20mg/ml) 5ml vial ONE (15:54)
[2020-08-23] MEDS ORDERED: midazolam 2 mg/2 ml injection ONE (15:54)
[2020-08-23] MEDS ORDERED: propofol inj 20 ML IV ONE (15:54)
[2020-08-23] MEDS ORDERED: dexamethasone sod phosphate 4mg/ml inj. ONE (16:02)
[2020-08-23] MEDS ORDERED: ondansetron/PF 4mg/2ml inj ONE (16:05)
[2020-08-23] MEDS ORDERED: BUPIVAcaine 0.25% w/Epi /PF 30ml vial ONE (16:12)
--- NOTE | 2020-08-23 16:37 | NUR ---
RECEIVED FROM OR [facility]IA [facility] ACCOMPANIED BY ANESTHESIOLOGIST DR MENDOZA, REPORT GIVEN. PT AWAKE AND ALERT , DENIES PAIN. 20 GAUGE PIVR FA PATENT AND RUNNING LR AT 100 ML/HR. DUONG PAD WITH SCANT SS DRAINAGE. PPULSES PRESENT, BRISK CAP REFILL, SKIN PINK AND WARM, VSS ,AMANDA, ABD SOFT, RESTING COMFORTABLY.
--- NOTE | 2020-08-23 17:37 | NUR ---
PT AWAKE AND ALERT , DENIES PAIN. 20 GAUGE PIVR FA DCD CATH TIP INTACT. DUONG PAD WITH SCANT SS DRAINAGE. PPULSES PRESENT, BRISK CAP REFILL, SKIN PINK AND WARM, VSS ,AMANDA, ABD SOFT.TOLERATING FLUIDS, ABLE TO DRESS SELF AND AMBULATE. DISCHARGE INSTRUCTIONS GIVEN AND PT VERBALIZED UNDERSTANDING. TRANSPORTED VIA WHEELCHAIR TO SON IN PRIVATE VEHICLE TO HOME.
== END 2020-08-23 17:37 | disposition home or self-care (01) ==
LOC: PAS 14:51
PROVIDERS: ATTEND Specialist
DX: N92.0 Excessive and frequent menstruation with regular cycle (principal); F41.9 Anxiety disorder, unspecified; F32.9 Major depressive disorder, single episode, unspecified; M19.90 Unspecified osteoarthritis, unspecified site; G89.29 Other chronic pain; D64.9 Anemia, unspecified; K21.9 Gastro-esophageal reflux disease without esophagitis; E66.01 Morbid (severe) obesity due to excess calories; Z68.30 Body mass index [BMI] 30.0-30.9, adult; Z88.1 Allergy status to other antibiotic agents; Z91.013 Allergy to seafood; Z88.8 Allergy status to other drugs, medicaments and biological substances; Z20.828 Contact with and (suspected) exposure to other viral communicable diseases; Z79.899 Other long term (current) drug therapy; Z98.890 Other specified postprocedural states; Z90.49 Acquired absence of other specified parts of digestive tract; Z98.51 Tubal ligation status; Z87.891 Personal history of nicotine dependence; Z98.84 Bariatric surgery status
CPT/HCPCS: 36415; 58563; 80053; 82948; 85025; 87635; J0694; J1100; J2001; J2250; J2405; J2704; J3010; A4264; A4355; A4618; A6258; J7120

== ENCOUNTER 2020-12-23 14:55 | Outpatient (CLI) | payer BC ==
[2020-12-23 16:15] LABS: CLARITY,URINE CLEAR (Clear); COLOR,URINE YELLOW (Yellow); GLUCOSE, URINE NEGATIVE (Neg); KETONES,URINE NEGATIVE (Neg); LEUKOCYTE ESTERASE ,URINE NEGATIVE (Neg); NITRITES, URINE NEGATIVE (Neg); OCCULT BLOOD,URINE NEGATIVE (Neg); PROTEIN,URINE NEGATIVE (Neg); UROBILINOGEN,URINE 0.2 E.U/dL (0.2-1.0)
[2020-12-23 16:24] LABS: UA COLLECTION TYPE CLN CATCH MIDSTREAM
[2020-12-23 16:28] LABS: BASOPHILS % (AUTO) 1.1 % (0-1); EOSINOPHILS # (AUTO) 0.1 X10'3 (0-0.9); EOSINOPHILS % (AUTO) 3.8 % (0-6); HEMATOCRIT 42.2 % (35.0-45.0); HEMOGLOBIN 14.1 g/dl (12.0-16.0); LYMPHOCYTES % (AUTO) 30.9 % (21-51); MEAN CORPUSCULAR HEMOGLOBIN 32.5 PG (27.0-31.0); MEAN CORPUSCULAR HGB CONC 33.4 g/dL (33.0-36.5); MEAN CORPUSCULAR VOLUME 97.3 FL (78-98); MEAN PLATELET VOLUME 8.9 FL (7.4-10.4); MONOCYTES # (AUTO) 0.3 X10'3 (0-0.9); NEUTROPHILS # (AUTO) 1.8 X10'3 (1.8-7.7); NEUTROPHILS % (AUTO) 54.2 % (42-75); PLATELET COUNT 247 X10'3 (140-440); RED BLOOD COUNT 4.34 X10'6 (4.20-5.60); RED CELL DISTRIBUTION WIDTH 13.8 % (11.5-14.5); WHITE BLOOD COUNT 3.3 X10'3 (4.5-11.0)
[2020-12-23 16:51] LABS: ALANINE AMINOTRANSFERASE 32 U/L (12-78); ALBUMIN 3.5 G/DL (3.4-5.0); ALBUMIN/GLOBULIN RATIO 0.9 (1.1-1.5); ALKALINE PHOSPHATASE 90 IU/L (46-116); ANION GAP 9 (8-16); ASPARTATE AMINO TRANSFERASE 29 U/L (10-37); BILIRUBIN,TOTAL 0.2 MG/DL (0.1-1.0); BLOOD UREA NITROGEN 15 MG/DL (7-18); BUN/CREATININE RATIO 18.1 (6.6-38.0); CHLORIDE 107 MMOL/L (99-107); CHOL/HDL RATIO 2.2 (0.00-4.99); CHOLESTEROL 221 MG/DL (0-200); CREATININE 0.83 MG/DL (0.40-0.90); GLUCOSE 97 MG/DL (70-104); HDL CHOLESTEROL 100 MG/DL (35-60); LDL CHOLESTEROL 111 MG/DL (50-100); POTASSIUM 4.3 MMOL/L (3.5-5.1); SODIUM 141 MMOL/L (135-145); TOTAL CARBON DIOXIDE 24.7 MMOL/L (24-32); TOTAL PROTEIN 7.5 G/DL (6.4-8.2); TRIGLYCERIDES 89 MG/DL (20-135); eGFR 72 ML/MIN
== END 2020-12-23 23:59 | disposition home or self-care (01) ==
LOC: LAB 14:55
PROVIDERS: ATTEND Family Medicine
DX: Z00.00 Encounter for general adult medical examination without abnormal findings (principal)
CPT/HCPCS: 36415; 80053; 80061; 81003; 84436; 84443; 85025

== ENCOUNTER 2020-12-23 15:17 | Outpatient (CLI) | payer BC ==
[2020-12-23 17:00] LABS: RHEUM FACTOR QUAL REFLEX TITER NEGATIVE (Neg)
[2020-12-23 17:08] LABS: C-REACTIVE PROTEIN < 0.05 MG/DL (0.0-0.5)
== END 2020-12-23 23:59 | disposition home or self-care (01) ==
LOC: LAB 15:17
PROVIDERS: ATTEND Family Medicine Sports Medicine
DX: L53.9 Erythematous condition, unspecified (principal); M79.643 Pain in unspecified hand
CPT/HCPCS: 36415; 85651; 86038; 86140; 86200; 86430

== ENCOUNTER → 2020-12-23 | Outpatient (CLI) | payer BC ==
[~2020-12-23] MED LIST changes: -ceFOXitin sod/dextrose 2g/50ml 50 ML IV ONE; -famotidine 20mg tablet PO ONE; -ringers solution, lacted 1,000 ML IV SCH
== END | disposition home or self-care (01) ==
LOC: LAB 15:06
PROVIDERS: ATTEND Specialist
DX: Z00.00 Encounter for general adult medical examination without abnormal findings (principal); Z53.21 Procedure and treatment not carried out due to patient leaving prior to being seen by health care provider

== ENCOUNTER 2021-10-16 07:41 | Day surgery (SDC) | payer BC ==
[2021-10-10 10:16] LABS: ALBUMIN 3.3 G/DL (3.4-5.0); ALBUMIN/GLOBULIN RATIO 1.1 (1.1-1.5); ALKALINE PHOSPHATASE 84 IU/L (46-116); BLOOD UREA NITROGEN 19 MG/DL (7-18); BUN/CREATININE RATIO 24.7 (6.6-38.0); CALCIUM 8.4 MG/DL (8.5-10.1); CHLORIDE 108 MMOL/L (99-107); CREATININE 0.77 MG/DL (0.40-0.90); PRE OP ALT 28 U/L (30-65); PRE OP ANION GAP 8 (8-16); PRE OP AST 25 U/L (10-37); PRE OP BILIRUB, TOTAL 0.3 MG/DL (0.0-1.0); PRE OP GLUCOSE 106 MG/DL (70-104); PRE OP POTASSIUM 4.1 MMOL/L (3.4-5.1); PRE OP SODIUM 141 MMOL/L (135-145); TOTAL CARBON DIOXIDE 24.8 MMOL/L (24-32); TOTAL PROTEIN 6.4 G/DL (6.4-8.2); eGFR 78 ML/MIN
[2021-10-10 10:27] LABS: HCG SERUM QL NEGATIVE
[2021-10-10 10:31] LABS: EOSINOPHILS # (AUTO) 0.2 X10'3 (0-0.9); EOSINOPHILS % (AUTO) 4.5 % (0-6); LYMPHOCYTES # (AUTO) 1.1 X10'3 (1.1-4.8); LYMPHOCYTES % (AUTO) 23.1 % (21-51); MEAN CORPUSCULAR HEMOGLOBIN 33.7 PG (27.0-31.0); MEAN CORPUSCULAR HGB CONC 34.3 g/dL (33.0-36.5); MEAN CORPUSCULAR VOLUME 98.4 FL (78-98); MEAN PLATELET VOLUME 9.1 FL (7.4-10.4); MONOCYTES # (AUTO) 0.4 X10'3 (0-0.9); MONOCYTES % (AUTO) 8.2 % (2-12); NEUTROPHILS # (AUTO) 2.9 X10'3 (1.8-7.7); NEUTROPHILS % (AUTO) 63.2 % (42-75); PRE OP HEMATOCRIT 38.8 % (35.0-45.0); PRE OP HEMOGLOBIN 13.3 g/dL (12.0-16.0); PRE OP PLATELET COUNT 264 X10'3 (140-440); RED BLOOD COUNT 3.95 X10'6 (4.20-5.60)
[~2021-10-16] VITALS: Ht 177.8 cm; Wt 97.7 kg
[2021-10-16] VITALS (8 sets, daily range): BP systolic 101–132; BP diastolic 69–91
[~2021-10-16 07:41] MED LIST changes: -ARIP5TAB14 PO; -BIOT10TA4 PO; +BUPIVAcaine/PF 2.5 mg/ml (0.25%) 30ml vial ONE; -CALC-1051 PO; -CHRO400T10 PO; -FERR-119 PO; -FLUT16SP2 BOTHNARES; -LORA10CA PO; -MAGN400C PO; -NIA500ERT PO; -PHEN105C47 PO; -VITA-268 PO; -VITC500T PO; +albuterol 2.5 MG/3 ML nebule NEB ONE; +cefazolin/dext.iso 2gm/50ml IV ONE; +famotidine 20mg tablet PO ONE; -fish oil PO; -iron PO; +ringers solution, lacted 1,000 ML IV SCH
[2021-10-16] MEDS ORDERED: NAPR220T67 PO (08:26)
[2021-10-16] MEDS ORDERED: ondansetron/PF 4mg/2ml inj IV PRN (09:20)
[2021-10-16] MEDS ORDERED: ringers solution, lacted 1,000 ML IV SCH (09:20)
[2021-10-16] MEDS ORDERED: morphine 4 MG/ML inj SYRINge IV PRN (09:20)
[2021-10-16] MEDS ORDERED: meperidine/PF 25mg/ml syringe IV PRN ×3 (09:20)
[2021-10-16] MEDS ORDERED: proCHLORperazine 10 MG/2 ml inj IV PRN (09:20)
[2021-10-16] MEDS ORDERED: morphine 2 MG/ML inj. syringe IV PRN (09:20)
[2021-10-16] MEDS ORDERED: fentaNYL/PF 50MCG/1 ML 2ML syringe ONE (10:11)
[2021-10-16] MEDS ORDERED: midazolam 1 mg/ML 2ml injection ONE (10:12)
--- NOTE | 2021-10-16 10:51 | NUR ---
Received from OR via , accompanied by Anesthesiologist DR. PACK and report given by Anesthesiolgist AND OR NURSE. PT ARRIVED AWAKE AND TALKING ON ROOM AIR. VSS. DENIES PAIN OR NAUSEA. LR RUNNING TO 20G IV ON RIGHT HAND. LEFT HAND DRESSING C/D/I. WILL CONTINUE TO MONITOR. Addendum: 10/16/21 at 1107 by Arianna Chen RN Amended: Links added.
--- NOTE | 2021-10-16 11:41 | NUR ---
ALL DISCHARGE CRITERIA HAS BEEN MET. VSS, PAIN AT A TOLERABLE LEVEL, VOIDING AND ABLE TO SAFELY AMBULATE AND TRANSFER SELF. IV TAKEN OUT WITHOUT ANY COMPLICATIONS. ALL DISCHARGE INSTRUCTIONS COVERED WITH PATIENT AND ALL QUESTIONS ANSWERED. PATIENT TAKEN OUT VIA WHEELCHAIR TO PERSONAL VEHICLE WHERE FAMILY/FRIEND DROVE PATIENT HOME. Addendum: 10/16/21 at 1155 by Arianna Chen RN Amended: Links added.
== END 2021-10-16 11:41 | disposition home or self-care (01) ==
LOC: PAS 07:41
PROVIDERS: ATTEND Orthopaedic Surgery Hand Surgery
DX: G56.02 Carpal tunnel syndrome, left upper limb (principal); M65.312 Trigger thumb, left thumb; M65.4 Radial styloid tenosynovitis [de Quervain]; F17.210 Nicotine dependence, cigarettes, uncomplicated; G89.29 Other chronic pain; M19.90 Unspecified osteoarthritis, unspecified site; F41.9 Anxiety disorder, unspecified; F32.A Depression, unspecified; E78.5 Hyperlipidemia, unspecified; E66.8 Other obesity; Z68.32 Body mass index [BMI] 32.0-32.9, adult; Z86.16 Personal history of COVID-19; Z98.890 Other specified postprocedural states; Z98.51 Tubal ligation status; Z90.49 Acquired absence of other specified parts of digestive tract; Z98.84 Bariatric surgery status; Z88.1 Allergy status to other antibiotic agents; Z88.8 Allergy status to other drugs, medicaments and biological substances; Z79.899 Other long term (current) drug therapy; Z72.89 Other problems related to lifestyle; Z83.3 Family history of diabetes mellitus; Z82.49 Family history of ischemic heart disease and other diseases of the circulatory system
CPT/HCPCS: 25000; 26055; 29848; 36415; 80053; 82948; 84703; 85025; 93005; J0690; J2250; J3010; J3490; J7030; J7120; Z7506; Z7512; A4215; A6449; A7000

== ENCOUNTER 2021-11-13 05:42 | Day surgery (SDC) | payer BC ==
[2021-11-03 10:21] LABS: BASOPHILS # (AUTO) 0.1 X10'3 (0-0.2); BASOPHILS % (AUTO) 1.2 % (0-1); EOSINOPHILS # (AUTO) 0.2 X10'3 (0-0.9); EOSINOPHILS % (AUTO) 5.1 % (0-6); LYMPHOCYTES % (AUTO) 22.9 % (21-51); MEAN CORPUSCULAR HEMOGLOBIN 33.9 PG (27.0-31.0); MEAN CORPUSCULAR HGB CONC 34.5 g/dL (33.0-36.5); MEAN CORPUSCULAR VOLUME 98.1 FL (78-98); MEAN PLATELET VOLUME 8.6 FL (7.4-10.4); MONOCYTES # (AUTO) 0.3 X10'3 (0-0.9); MONOCYTES % (AUTO) 7.1 % (2-12); NEUTROPHILS # (AUTO) 2.8 X10'3 (1.8-7.7); NEUTROPHILS % (AUTO) 63.7 % (42-75); PRE OP HEMATOCRIT 40.8 % (35.0-45.0); PRE OP HEMOGLOBIN 14.1 g/dL (12.0-16.0); PRE OP PLATELET COUNT 280 X10'3 (140-440); RED BLOOD COUNT 4.16 X10'6 (4.20-5.60); RED CELL DISTRIBUTION WIDTH 13.1 % (11.5-14.5)
[2021-11-03 11:32] LABS: ALBUMIN 3.7 G/DL (3.4-5.0); ALBUMIN/GLOBULIN RATIO 1.3 (1.1-1.5); ALKALINE PHOSPHATASE 97 IU/L (46-116); BLOOD UREA NITROGEN 17 MG/DL (7-18); CALCIUM 8.7 MG/DL (8.5-10.1); CHLORIDE 108 MMOL/L (99-107); CREATININE 0.81 MG/DL (0.40-0.90); PRE OP ALT 21 U/L (30-65); PRE OP ANION GAP 12 (8-16); PRE OP AST 24 U/L (10-37); PRE OP BILIRUB, TOTAL 0.3 MG/DL (0.0-1.0); PRE OP GLUCOSE 120 MG/DL (70-104); PRE OP POTASSIUM 4.2 MMOL/L (3.4-5.1); PRE OP SODIUM 144 MMOL/L (135-145); TOTAL CARBON DIOXIDE 24.2 MMOL/L (24-32); TOTAL PROTEIN 6.6 G/DL (6.4-8.2); eGFR 74 ML/MIN
[~2021-11-13] VITALS: Ht 177.8 cm; Wt 100.1 kg
[~2021-11-13 05:42] MED LIST changes: -BUPIVAcaine/PF 2.5 mg/ml (0.25%) 30ml vial ONE; +NAPR220T67 PO; -albuterol 2.5 MG/3 ML nebule NEB ONE
[2021-11-13 06:00] VITALS: BP_SYST 116; BP_DIAS 71; BP_DIAS 79
[2021-11-13] MEDS ORDERED: LIDOcaine 1% (10mg/ml) 2ml vial ONE (06:07)
[2021-11-13] MEDS ORDERED: BUPIVAcaine 0.5% inj/PF 30 ML ONE (06:46)
[2021-11-13] MEDS ORDERED: ringers solution, lacted 1,000 ML IV SCH (07:05)
[2021-11-13] MEDS ORDERED: morphine 4 MG/ML inj SYRINge IV PRN (07:05)
[2021-11-13] MEDS ORDERED: ondansetron/PF 4mg/2ml inj IV PRN (07:05)
[2021-11-13] MEDS ORDERED: fentaNYL/PF 50MCG/1 ML 2ML syringe IV PRN ×2 (07:05)
[2021-11-13] MEDS ORDERED: hydrALAZINE 20mg/ml inj. IV PRN (07:05)
[2021-11-13] MEDS ORDERED: morphine 2 MG/ML inj. syringe IV PRN (07:05)
[2021-11-13] MEDS ORDERED: labetalol 20mg/4ml (5mg/ml) syringe IV PRN (07:05)
[2021-11-13] MEDS ORDERED: MIDAZolam 1mg/ml 10ml vial ONE (07:08)
[2021-11-13] MEDS ORDERED: fentaNYL/PF 50MCG/1 ML 2ML syringe ONE (07:09)
[2021-11-13] MEDS ORDERED: ketorolac trometh. 30mg/ml inj. ONE (07:10)
[2021-11-13] MEDS ORDERED: LIDOcaine 1% 30ml preserv. free vial ONE (07:14)
[2021-11-13] MEDS ORDERED: BUPIVAcaine 0.5% inj/PF 30 ml vial IJ ONE (07:30)
[2021-11-13 07:59] VITALS: BP 129/82
--- NOTE | 2021-11-13 07:59 | NUR ---
Received from OR via [facility], accompanied by Anesthesiologist Billy and report given by Anesthesiolgist. VS WNL pt responsive but sleepy, luz wrap over dressing to right elbow and wrist. RA and sats above 95%. Ice pack applied to right elbow and wrist. 20G left wrist LR at 100cc/hr.
[2021-11-13 08:10] VITALS: BP 123/87
[2021-11-13 08:20] VITALS: BP 117/80
[2021-11-13 08:30] VITALS: BP 129/82
[2021-11-13 08:40] VITALS: BP 125/80
--- NOTE | 2021-11-13 09:11 | NUR ---
Pt ready to go and sitting in wheelchair but ride is delayed, she remains stable, awake, alert and responsive, oriented, no pain.
--- NOTE | 2021-11-13 09:29 | NUR ---
ALL DISCHARGE CRITERIA HAS BEEN MET. VSS, PAIN AT A zero, ABLE TO SAFELY AMBULATE AND TRANSFER SELF. IV TAKEN OUT WITHOUT ANY COMPLICATIONS. ALL DISCHARGE INSTRUCTIONS COVERED WITH PATIENT AND ALL QUESTIONS ANSWERED. PATIENT TAKEN OUT VIA WHEELCHAIR TO PERSONAL VEHICLE WHERE FAMILY/FRIEND DROVE PATIENT HOME. DRESSING REMAINS CDI.
== END 2021-11-13 09:29 | disposition home or self-care (01) ==
LOC: PAS 05:42
PROVIDERS: ATTEND Orthopaedic Surgery Hand Surgery
DX: G56.01 Carpal tunnel syndrome, right upper limb (principal); M65.311 Trigger thumb, right thumb; M77.11 Lateral epicondylitis, right elbow; F41.9 Anxiety disorder, unspecified; G89.4 Chronic pain syndrome; F32.A Depression, unspecified; K21.9 Gastro-esophageal reflux disease without esophagitis; E78.5 Hyperlipidemia, unspecified; E66.8 Other obesity; Z68.32 Body mass index [BMI] 32.0-32.9, adult; D64.9 Anemia, unspecified; M19.90 Unspecified osteoarthritis, unspecified site; Z79.899 Other long term (current) drug therapy; Z88.1 Allergy status to other antibiotic agents; Z88.8 Allergy status to other drugs, medicaments and biological substances; Z98.51 Tubal ligation status; Z90.49 Acquired absence of other specified parts of digestive tract; Z98.890 Other specified postprocedural states; Z98.84 Bariatric surgery status; Z87.891 Personal history of nicotine dependence; Z72.89 Other problems related to lifestyle; Z82.49 Family history of ischemic heart disease and other diseases of the circulatory system
CPT/HCPCS: 24358; 26055; 29848; 36415; 80053; 82948; 85025; J0690; J1885; J2250; J3010; J3490; J7030; J7120; S0020; Z7506; Z7512; A4215; A6449; A7000

== ENCOUNTER 2022-01-19 09:43 | Outpatient (CLI) | payer BC ==
[~2022-01-19 09:43] MED LIST changes: -cefazolin/dext.iso 2gm/50ml IV ONE; -famotidine 20mg tablet PO ONE; -ringers solution, lacted 1,000 ML IV SCH
[2022-01-20 09:24] LABS: ESTRADIOL <5.0 pg/mL (.); PROGESTERONE 0.4 ng/mL (.)
== END 2022-01-19 23:59 | disposition home or self-care (01) ==
LOC: LAB 09:43
PROVIDERS: ATTEND Physician Assistant
DX: F41.9 Anxiety disorder, unspecified (principal); R45.86 Emotional lability
CPT/HCPCS: 36415; 82670; 82679; 84144

== ENCOUNTER 2022-01-19 09:44 | Outpatient (CLI) | payer BC ==
[2022-01-19 11:07] LABS: HEMATOCRIT 43.4 % (35.0-45.0); HEMOGLOBIN 14.9 g/dl (12.0-16.0); MEAN CORPUSCULAR HEMOGLOBIN 33.6 PG (27.0-31.0); MEAN CORPUSCULAR HGB CONC 34.3 g/dL (33.0-36.5); MEAN PLATELET VOLUME 9.5 FL (7.4-10.4); PLATELET COUNT 287 X10'3 (140-440); RED BLOOD COUNT 4.43 X10'6 (4.20-5.60); RED CELL DISTRIBUTION WIDTH 13.3 % (11.5-14.5); WHITE BLOOD COUNT 3.6 X10'3 (4.5-11.0)
[2022-01-19 11:27] LABS: ALANINE AMINOTRANSFERASE 27 U/L (12-78); ALBUMIN/GLOBULIN RATIO 1.2 (1.1-1.5); ALKALINE PHOSPHATASE 97 IU/L (46-116); ANION GAP 11 (8-16); ASPARTATE AMINO TRANSFERASE 21 U/L (10-37); BILIRUBIN,TOTAL 0.4 MG/DL (0.1-1.0); BLOOD UREA NITROGEN 19 MG/DL (7-18); BUN/CREATININE RATIO 24.1 (6.6-38.0); CALCIUM 8.7 MG/DL (8.5-10.1); CHLORIDE 107 MMOL/L (99-107); CREATININE 0.79 MG/DL (0.40-0.90); GLUCOSE 105 MG/DL (70-104); POTASSIUM 4.1 MMOL/L (3.5-5.1); SODIUM 142 MMOL/L (135-145); TOTAL CARBON DIOXIDE 24.5 MMOL/L (24-32); TOTAL PROTEIN 7.4 G/DL (6.4-8.2); eGFR 76 ML/MIN
[2022-01-19 11:30] LABS: HEMOGLOBIN A1C 5.4 % (4.5-6.2); PLATELET ESTIMATE NORMAL; TOTAL CELLS COUNTED 100
[2022-01-19 12:13] LABS: CHOL/HDL RATIO 2.2 (0.00-4.99); CHOLESTEROL 216 MG/DL (0-200); HDL CHOLESTEROL 100 MG/DL (35-60); LDL CHOLESTEROL 102 MG/DL (50-100); TRIGLYCERIDES 104 MG/DL (20-135)
[2022-01-20 09:24] LABS: ESTRADIOL <5.0 pg/mL (.); FSH, SERUM 40.3 mIU/mL (.); SEX HORM BINDING GLOB, SERUM 79.9 nmol/L (17.3-125.0)
== END 2022-01-19 23:59 | disposition home or self-care (01) ==
LOC: LAB 09:44
PROVIDERS: ATTEND Specialist
DX: Z78.0 Asymptomatic menopausal state (principal)
CPT/HCPCS: 36415; 80053; 80061; 82670; 83001; 83036; 84270; 84402; 84403; 84439; 84443; 85007; 85025

== ENCOUNTER 2022-03-09 11:15 | Outpatient (CLI) | payer BC ==
[2022-03-10 09:28] LABS: PROGESTERONE 0.2 ng/mL (.)
== END 2022-03-09 23:59 | disposition home or self-care (01) ==
LOC: LAB 11:15
PROVIDERS: ATTEND Physician Assistant
DX: F41.9 Anxiety disorder, unspecified (principal); R45.86 Emotional lability
CPT/HCPCS: 36415; 82670; 82679; 84144

== ENCOUNTER 2022-03-09 11:21 | Outpatient (CLI) | payer BC | END 2022-03-09 23:59 | disposition home or self-care (01) | LOC: LAB 11:21 | PROVIDERS: ATTEND Family Medicine | DX: J98.11 Atelectasis (principal); J98.8 Other specified respiratory disorders | CPT/HCPCS: 71046 ==

== ENCOUNTER 2022-04-04 16:16 | Emergency (ER) | payer BC ==
[~2022-04-04] VITALS: Ht 177.8 cm; Wt 97.7 kg
[2022-04-04 16:31] VITALS: BP 136/94
[2022-04-04] MEDS ORDERED: ketorolac trometh. 30mg/ml inj. IM ONE (17:40)
[2022-04-04] MEDS ORDERED: LORazepam 1 MG tablet PO ONE (17:40)
[2022-04-05] MEDS ORDERED: PRED20TA PO (15:00)
== END 2022-04-04 20:08 | disposition home or self-care (01) ==
LOC: ER 16:16 → EEVIPCON 16:16 → ER 20:08
DX: M54.30 Sciatica, unspecified side (principal); D21.9 Benign neoplasm of connective and other soft tissue, unspecified; G43.909 Migraine, unspecified, not intractable, without status migrainosus; D64.9 Anemia, unspecified; G89.29 Other chronic pain; F32.A Depression, unspecified; Z88.5 Allergy status to narcotic agent; Z91.013 Allergy to seafood; Z88.1 Allergy status to other antibiotic agents; Z79.899 Other long term (current) drug therapy; Z79.1 Long term (current) use of non-steroidal anti-inflammatories (NSAID)
CPT/HCPCS: 72131; 72192; 96372; 99284; J1885

== ENCOUNTER 2022-04-13 14:04 | Emergency (ER) | payer BC ==
[~2022-04-13] VITALS: Ht 177.8 cm; Wt 95.5 kg
[~2022-04-13 14:04] MED LIST changes: +PRED20TA PO
[2022-04-13 14:54] VITALS: BP 125/79
[2022-04-13] MEDS ORDERED: bacitracin 15gm ointment TP ONE (16:35)
--- NOTE | 2022-04-13 16:57 | NUR ---
wound cleaned and dressed. abx applied to site.
[2022-04-13] MEDS ORDERED: ACET-1059 PO (19:06)
== END 2022-04-13 17:23 | disposition home or self-care (01) ==
LOC: EEVIPCON 14:05 → ER 14:05
DX: S80.211A Abrasion, right knee, initial encounter (principal); M79.674 Pain in right toe(s); M54.50 Low back pain, unspecified; G43.909 Migraine, unspecified, not intractable, without status migrainosus; I50.9 Heart failure, unspecified; Z91.013 Allergy to seafood; Z91.041 Radiographic dye allergy status; Z90.49 Acquired absence of other specified parts of digestive tract; X58.XXXA Exposure to other specified factors, initial encounter; Y93.89 Activity, other specified; Y92.89 Other specified places as the place of occurrence of the external cause; Y99.8 Other external cause status
CPT/HCPCS: 29515; 73630; 99283; L3260

== ENCOUNTER 2022-05-17 11:19 | Emergency (ER) | payer BC, OTHER ==
[~2022-05-17] VITALS: Ht 177.8 cm; Wt 95.5 kg
[~2022-05-17 11:19] MED LIST changes: -PRED20TA PO
[2022-05-17 11:30] VITALS: BP 133/95
[2022-05-17] MEDS ORDERED: ondansetron/PF 4mg/2ml inj IV ONE (12:30)
[2022-05-17] MEDS ORDERED: morphine 4 MG/ML inj SYRINge IV ONE (12:30)
--- NOTE | 2022-05-17 13:54 | NUR ---
pt to mri
--- NOTE | 2022-05-17 14:16 | NUR ---
PT BACK FROM MRI
[2022-05-17] MEDS ORDERED: LORazepam 2 mg/ml vial IV ONE (14:25)
== END 2022-05-17 15:28 | disposition home or self-care (01) ==
LOC: EEVIPCON 11:19 → ER 11:19
DX: S93.114A Dislocation of interphalangeal joint of right lesser toe(s), initial encounter (principal); M54.50 Low back pain, unspecified; R20.0 Anesthesia of skin; R53.1 Weakness; G43.909 Migraine, unspecified, not intractable, without status migrainosus; G89.29 Other chronic pain; F32.A Depression, unspecified; Z86.2 Personal history of diseases of the blood and blood-forming organs and certain disorders involving the immune mechanism; Z90.49 Acquired absence of other specified parts of digestive tract; Z98.890 Other specified postprocedural states; Z72.89 Other problems related to lifestyle; Z88.1 Allergy status to other antibiotic agents; Z91.013 Allergy to seafood; Z79.899 Other long term (current) drug therapy; W19.XXXA Unspecified fall, initial encounter; Y93.89 Activity, other specified; Y92.89 Other specified places as the place of occurrence of the external cause; Y99.8 Other external cause status
CPT/HCPCS: 28660; 73610; 73630; 96374; 96375; 99284; J2270; J2405

== ENCOUNTER 2023-01-11 17:43 | Emergency (ER) | payer BC ==
[~2023-01-11] VITALS: Ht 177.8 cm; Wt 106.0 kg
[2023-01-11] MEDS ORDERED: HYDROcodone/acetaminophen 5mg/325mg tablet PO ONE (18:20)
[2023-01-11] MEDS ORDERED: HYDR-3965 PO (18:58)
[2023-01-11 19:04] VITALS: BP 141/96
== END 2023-01-11 19:06 | disposition home or self-care (01) ==
LOC: ER 17:43
DX: S00.03XA Contusion of scalp, initial encounter (principal); G43.909 Migraine, unspecified, not intractable, without status migrainosus; I50.9 Heart failure, unspecified; Z91.041 Radiographic dye allergy status; Z91.013 Allergy to seafood; Z88.1 Allergy status to other antibiotic agents; W10.9XXA Fall (on) (from) unspecified stairs and steps, initial encounter; Y93.89 Activity, other specified; Y92.89 Other specified places as the place of occurrence of the external cause; Y99.8 Other external cause status
CPT/HCPCS: 70450; 99284

== ENCOUNTER 2023-02-18 15:59 | Outpatient (CLI) | payer BC | END 2023-02-18 23:59 | disposition home or self-care (01) | LOC: RAD 15:59 | PROVIDERS: ATTEND Neurological Surgery | DX: M47.817 Spondylosis without myelopathy or radiculopathy, lumbosacral region (principal); M48.062 Spinal stenosis, lumbar region with neurogenic claudication; M12.88 Other specific arthropathies, not elsewhere classified, other specified site; M51.27 Other intervertebral disc displacement, lumbosacral region | CPT/HCPCS: 72110 ==

== ENCOUNTER 2023-02-18 16:08 | Outpatient (CLI) | payer BC | END 2023-02-18 23:59 | disposition home or self-care (01) | LOC: RAD 16:08 | PROVIDERS: ATTEND Family Medicine | DX: M94.261 Chondromalacia, right knee (principal); M25.461 Effusion, right knee; M25.561 Pain in right knee; M79.675 Pain in left toe(s) | CPT/HCPCS: 72148; 73660; 73721 ==

== ENCOUNTER 2023-05-07 15:36 | Outpatient (CLI) | payer BC | END 2023-05-07 23:59 | disposition home or self-care (01) | LOC: LAB 15:36 | PROVIDERS: ATTEND Neurological Surgery | DX: M54.50 Low back pain, unspecified (principal) | CPT/HCPCS: 71046; 93005 ==

== ENCOUNTER 2023-05-07 15:45 | Outpatient (CLI) | payer BC ==
[2023-05-07 16:22] LABS: BASOPHILS % (AUTO) 0.3 % (0-1); EOSINOPHILS # (AUTO) 0.1 X10'3 (0-0.9); EOSINOPHILS % (AUTO) 3.3 % (0-6); HEMATOCRIT 40.3 % (35.0-45.0); HEMOGLOBIN 13.5 g/dl (12.0-16.0); LYMPHOCYTES # (AUTO) 1.3 X10'3 (1.1-4.8); MEAN CORPUSCULAR HEMOGLOBIN 32.9 PG (27.0-31.0); MEAN CORPUSCULAR HGB CONC 33.4 g/dL (33.0-36.5); MEAN CORPUSCULAR VOLUME 98.3 FL (78-98); MEAN PLATELET VOLUME 9.2 FL (7.4-10.4); MONOCYTES # (AUTO) 0.4 X10'3 (0-0.9); MONOCYTES % (AUTO) 8.6 % (2-12); NEUTROPHILS # (AUTO) 2.7 X10'3 (1.8-7.7); NEUTROPHILS % (AUTO) 59.8 % (42-75); PLATELET COUNT 262 X10'3 (140-440); WHITE BLOOD COUNT 4.5 X10'3 (4.5-11.0)
[2023-05-07 16:33] LABS: APTT 27 SECONDS (22-32)
[2023-05-07 16:34] LABS: ALBUMIN 3.7 G/DL (3.4-5.0); ANION GAP 11 (8-16); BLOOD UREA NITROGEN 16 MG/DL (7-18); C-REACTIVE PROTEIN 0.06 MG/DL (0.0-0.5); CALCIUM 9.2 MG/DL (8.5-10.1); CHLORIDE 106 MMOL/L (99-107); CREATININE 0.84 MG/DL (0.40-0.90); GLUCOSE 100 MG/DL (70-104); POTASSIUM 3.8 MMOL/L (3.5-5.1); SODIUM 142 MMOL/L (135-145); TOTAL CARBON DIOXIDE 24.6 MMOL/L (24-32); eGFR 71 ML/MIN
== END 2023-05-07 23:59 | disposition home or self-care (01) ==
LOC: LAB 15:45
PROVIDERS: ATTEND Family Medicine
DX: M54.50 Low back pain, unspecified (principal)
CPT/HCPCS: 36415; 80048; 85025; 85610; 85651; 85730; 86140